=== PATIENT | male | born 1990 | race Caucasian/White ===

== ENCOUNTER 2016-03-12 18:47 | Emergency (ER) | payer OTHER ==
--- NOTE | 2016-03-12 20:25 | ED CLINICAL REPORT ---
Clinical Report - Physicians/Mid Levels [facility] [address] [place] [address] 03/12/2016 18:49 Patient: LASHANDA URIARTE Time Seen: 19:26; initial patient contact, initial documentation, patient care assumed. Arrived- By private vehicle. Historian- patient. HISTORY OF PRESENT ILLNESS Chief Complaint: NECK PAIN and CHRONIC NECK PAIN. Modifying factors- worsened by rotation of the head to the right or left or neck flexion. Not relieved by anything. Onset- about 3 years ago and it is still present. It is described as being severe and in the area of the left side of the cervical spine, cervical spine and right side of the cervical spine and radiating to the right arm and right shoulder. The quality is noted to be sharp and "pain". No bladder dysfunction, bowel dysfunction, sensory loss or motor loss. Additional history - says he still is having trouble getting dr to do anything because his L&I case was closed and recently back opened. Patient denies an injury but injury to the head or chest. Similar symptoms previously: Chronically, as bad. Recent medical care: Not recently seen/assessed. REVIEW OF SYSTEMS No fever, sore throat, difficulty breathing or chest pain. All systems otherwise negative, except as recorded above. PAST HISTORY See nurses notes. Has had neck injury. He has had prior neck pain. PAST HISTORY See nurses notes. PROBLEMS: Cervical Radiculopathy. Gastroesophageal Reflux Disease. Gastritis. Peptic Ulcer Disease. GI Bleeding. H-pylori. Dehydration. Neck Injury. Sciatica. Back Injury. Vomiting. Headache. Croup. Tetanus Status. Myofascial Strain. Gingivitis. Nausea. Neck Pain. Dental Pain. Back Pain. --17:11 Tootie Flannery. ADDITIONAL SURGERIES: Endoscopy. --17:11 Tootie Flannery. SOCIAL HISTORY Light tobacco smoker. No alcohol use or drug use. No recent travel. Is a local resident. FAMILY HISTORY Negative. ADDITIONAL NOTES The nursing notes have been reviewed with agreement regarding the chief complaint, HPI, ROS, PMH and patient medications and allergies. PHYSICAL EXAM Vital Signs: 03/12/2016 19:16 BP: 139/89. HR: 88. RR: 20. O2 saturation: 100%. Temp: 98.6 F. Pain level now: 8/10. Have been reviewed as normal and appear to be correct. Appearance: Alert. No acute distress. Anxious. HEENT: Normal external inspection. Eyes: Pupils equal, round and reactive to light. ENT: Ears normal. Pharynx normal. Neck: Neck tenderness. Abnormal inspection. Painful ROM. Pain in the neck upon movement. Decrease in ROM. No muscle spasm in the neck. Vertebral tenderness. Soft tissue tenderness. No lymphadenopathy or meningeal signs. CVS: Normal heart rate and rhythm. Heart sounds normal. Pulses normal. Respiratory: No respiratory distress. Breath sounds normal. Chest nontender. Back: Normal inspection. No tenderness. Painless ROM. Skin: Skin warm and dry. Normal skin color. No rash. Normal skin turgor. Extremities: Extremities exhibit normal ROM. Extremities nontender. Neuro: Oriented X 3. Mood/affect normal. No motor deficit. No sensory deficit. PROGRESS AND PROCEDURES Patient counseled in person regarding the patient's stable condition and diagnosis. 20:25. Differential Diagnosis: Other possible considerations: substance abuse, chronic neck pain, radiocapathy, nerve impingement, oa, ddd, djd. Above considerations are based on history and physical exam. Differential diagnosis was discussed with patient. Disposition: Discharged home in good and improved condition (20:25). Condition: good and stable. CLINICAL IMPRESSION Chronic neck pain associated with cervical disc herniation. Chronic right and left upper, mid and lower cervical radiculopathy with sensory loss. INSTRUCTIONS Warnings: GENERAL WARNINGS: Return or contact your physician immediately if your condition worsens or changes unexpectedly, if not improving as expected, or if other problems arise. SPECIFICALLY, return if you develop numbness or incontinence of feces (loss of bowel control) or urine (loss of bladder control). Prescription Medications: Naproxen 500 mg tablets: take 1 orally every 12 hours as needed for pain. Dispense twenty (20). No refills. Medrol Dosepak: take according to package directions. Dispense one (1) dosepak. No refills. Substitution is permissible. Follow-up: Follow up with your doctor in about one week even if well. Call for an appointment. Summary of care provided to patient. Understanding of the discharge instructions verbalized by patient. (Electronically signed by Ayana Ortiz A.R.N.P. 03/12/2016 22:06)
--- NOTE | 2016-03-12 20:26 | ED ORDER SUMMARY ---
..... Patient: LASHANDA URIARTE OrderSheet [facility] VisitID: [id number] [place] [address] 25y, M Registration Date/Time: 03/12/2016 ORDER SHEET Weight: 24.9 kg (stated) Allergies: No Known Drug Allergy GENERAL ORDERS: MEDICATION ORDERS: Toradol IM 60 mg (NOW) (20:24 03/12/2016 HBivens A.R.N.P.) (20:33 SRoberts R.N.) Decadron IM 8 mg (NOW) (20:24 03/12/2016 HBivens A.R.N.P.) (20:33 SRoberts R.N.) IV FLUIDS: ORDER SHEET NOTES: [Electronically signed by Randee Yusuf R.N. (20:44 03/12/2016)] [Electronically signed by Ayana OrtizR.N.P. (22:06 03/12/2016)] [Electronically locked/signed by Randee Yusuf R.N. (20:44 03/12/2016)]
--- NOTE | 2016-03-12 20:26 | ED ORDER SUMMARY ---
..... Patient: LASHANDA URIARTE OrderSheet [facility] VisitID: [id number] [place] [address] 25y, M Registration Date/Time: 03/12/2016 ORDER SHEET Weight: 24.9 kg (stated) Allergies: No Known Drug Allergy GENERAL ORDERS: MEDICATION ORDERS: Toradol IM 60 mg (NOW) (20:24 03/12/2016 HBivens A.R.N.P.) (20:33 SRoberts R.N.) Decadron IM 8 mg (NOW) (20:24 03/12/2016 HBivens A.R.N.P.) (20:33 SRoberts R.N.) IV FLUIDS: ORDER SHEET NOTES: [Electronically signed by Randee Yusuf R.N. (20:44 03/12/2016)] [Electronically signed by Ayana OrtizR.N.P. (22:06 03/12/2016)] [Electronically locked/signed by Randee Yusuf R.N. (20:44 03/12/2016)]
--- NOTE | 2016-03-12 20:26 | ED NURSING NOTES ---
Clinical Report - Nurses [facility] [address] [place] [address] 03/12/2016 18:49 [id number] Triage time 19:16. Acuity: LEVEL 3. Chief Complaint: NECK PAIN and (Chronic neck pain, herniated disc.). Alert. No acute distress. KUSUM COMA SCORE: [place] Coma Scale: 15- eyes open spontaneously (4); best verbal response- oriented x 4 (5); best motor response- obeys commands (6). --19:23 Randee Yusuf R.N. 19:16 03/12/16. BP: 139/89. HR: 88. RR: 20. O2 saturation: 100%. Temp: 98.6 F. Pain level now: 8. --19:23 Randee Yusuf R.N. 19:16 03/12/16. BP: 139/89. HR: 88. RR: 20. O2 saturation: 100%. Temp: 98.6 F. Pain level now: 09/21. --19:24 Randee Yusuf R.N. Weight: 24.9 kg stated. Height/Length: 71 inches Per Patient. BMI: 7.7. --19:21 Randee Yusuf R.N. Medications OxyCODONE HCl Oral 10 mg, up to 5 x daily as needed. --19:20 Randee Yusuf R.N. Allergies No Known Drug Allergy. --19:20 Randee Yusuf R.N. History Arrived by private vehicle. Historian: patient. Primary physician (marylin). ( dropped off.). This is a recurrent problem. Symptoms are constant and still present (3 years ago, an L&I injury to the neck, herniated disc C5-C6. "For the last 3 days it has hurt, got really bad today. "). History of recent trauma- (3 years ago). 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 PAST MEDICAL HX: Tetanus status: unknown. ( neck injury, croupe). SURGERY HX: No history of previous surgery. FALL RISK ASSESSMENT: Fall risk assessment completed. No fall risk identified. NUTRITIONAL RISK ASSESSMENT: The nutritional risk assessment revealed no deficiencies. FUNCTIONAL ASSESSMENT: Functional assessment: no impairments noted. LEARNING NEEDS ASSESSMENT: The learning needs assessment revealed no barriers. SKIN INTEGRITY ASSESSMENT: Skin integrity risk assessment completed. No skin integrity risk identified. --19:23 Randee Yusuf R.N. Interventions ID band on patient. To room. --19:23 Randee Yusuf R.N. PHYSICAL ASSESSMENT To room via wheelchair. Patient gowned. GENERAL / NEURO / PSYCH: Alert. Oriented X 4. Appears in pain and anxious. RESPIRATORY: Respirations not labored. CVS: Capillary refill less than 2 seconds. GI / : Abdomen nontender. EXTREMITIES: Limited ROM present. Sensation intact in extremities. BACK: Limited ROM of the neck. --19:24 Randee Yusuf R.N. NURSING PROGRESS NOTES Cold pack applied. Patient gowned. Two patient identifiers checked. Call light placed in reach. Side rails up x 2. Bed placed in lowest position. Brakes of bed on. Patient ready for evaluation. --19:25 Randee Yusuf R.N. 20:18 03/12/2016 Decadron (Dexamethasone Sodium Phosphate) IM 8 mg given. Given in the left gluteus nacho. Allergies verified and confirmed 5 rights. --20:33 Randee Yusuf R.N. 20:23 03/12/2016 Toradol (Ketorolac Tromethamine) IM 60 mg given. Given in the right gluteus nacho. Allergies verified and confirmed 5 rights. --20:33 Randee Yusuf R.N. DISPOSITION / DISCHARGE Condition at departure: improved. No learning barriers present. Discharge instructions provided and reviewed with the patient. Reviewed medication(s) side effects, precautions, dosing and course information. Prescription(s) given to the patient. Patient verbalized understanding. Written instructions provided in [place]. The patient was discharged home. He left the Emergency Department ambulatory and via private vehicle. Parent driving. Medication list reviewed and validated. --20:43 Randee Yusuf R.N. 20:41 03/12/16. BP: 112/73. HR: 83. RR: 20. O2 saturation: 100% on nasal cannula at 2 liters/minute. Temp: deferred. --20:43 Randee Yusuf R.N. Locked/Released at 03/12/2016 20:44 by Ranede Yusuf R.N.
--- NOTE | 2016-03-12 20:26 | ED NURSING NOTES ---
Clinical Report - Nurses [facility] [address] [place] [address] 03/12/2016 18:49 [id number] Triage time 19:16. Acuity: LEVEL 3. Chief Complaint: NECK PAIN and (Chronic neck pain, herniated disc.). Alert. No acute distress. KUSUM COMA SCORE: [place] Coma Scale: 15- eyes open spontaneously (4); best verbal response- oriented x 4 (5); best motor response- obeys commands (6). --19:23 Randee Yusuf R.N. 19:16 03/12/16. BP: 139/89. HR: 88. RR: 20. O2 saturation: 100%. Temp: 98.6 F. Pain level now: 8. --19:23 Randee Yusuf R.N. 19:16 03/12/16. BP: 139/89. HR: 88. RR: 20. O2 saturation: 100%. Temp: 98.6 F. Pain level now: 09/21. --19:24 Randee Yusuf R.N. Weight: 24.9 kg stated. Height/Length: 71 inches Per Patient. BMI: 7.7. --19:21 Randee Yusuf R.N. Medications OxyCODONE HCl Oral 10 mg, up to 5 x daily as needed. --19:20 Randee Yusuf R.N. Allergies No Known Drug Allergy. --19:20 Randee Yusuf R.N. History Arrived by private vehicle. Historian: patient. Primary physician (marylin). ( dropped off.). This is a recurrent problem. Symptoms are constant and still present (3 years ago, an L&I injury to the neck, herniated disc C5-C6. "For the last 3 days it has hurt, got really bad today. "). History of recent trauma- (3 years ago). 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 PAST MEDICAL HX: Tetanus status: unknown. ( neck injury, croupe). SURGERY HX: No history of previous surgery. FALL RISK ASSESSMENT: Fall risk assessment completed. No fall risk identified. NUTRITIONAL RISK ASSESSMENT: The nutritional risk assessment revealed no deficiencies. FUNCTIONAL ASSESSMENT: Functional assessment: no impairments noted. LEARNING NEEDS ASSESSMENT: The learning needs assessment revealed no barriers. SKIN INTEGRITY ASSESSMENT: Skin integrity risk assessment completed. No skin integrity risk identified. --19:23 Randee Yusuf R.N. Interventions ID band on patient. To room. --19:23 Randee Yusuf R.N. PHYSICAL ASSESSMENT To room via wheelchair. Patient gowned. GENERAL / NEURO / PSYCH: Alert. Oriented X 4. Appears in pain and anxious. RESPIRATORY: Respirations not labored. CVS: Capillary refill less than 2 seconds. GI / : Abdomen nontender. EXTREMITIES: Limited ROM present. Sensation intact in extremities. BACK: Limited ROM of the neck. --19:24 Randee Yusuf R.N. NURSING PROGRESS NOTES Cold pack applied. Patient gowned. Two patient identifiers checked. Call light placed in reach. Side rails up x 2. Bed placed in lowest position. Brakes of bed on. Patient ready for evaluation. --19:25 Randee Yusuf R.N. 20:18 03/12/2016 Decadron (Dexamethasone Sodium Phosphate) IM 8 mg given. Given in the left gluteus nacho. Allergies verified and confirmed 5 rights. --20:33 Randee Yusuf R.N. 20:23 03/12/2016 Toradol (Ketorolac Tromethamine) IM 60 mg given. Given in the right gluteus nacho. Allergies verified and confirmed 5 rights. --20:33 Randee Yusuf R.N. DISPOSITION / DISCHARGE Condition at departure: improved. No learning barriers present. Discharge instructions provided and reviewed with the patient. Reviewed medication(s) side effects, precautions, dosing and course information. Prescription(s) given to the patient. Patient verbalized understanding. Written instructions provided in [place]. The patient was discharged home. He left the Emergency Department ambulatory and via private vehicle. Parent driving. Medication list reviewed and validated. --20:43 Randee Yusuf R.N. 20:41 03/12/16. BP: 112/73. HR: 83. RR: 20. O2 saturation: 100% on nasal cannula at 2 liters/minute. Temp: deferred. --20:43 Randee Yusuf R.N. Locked/Released at 03/12/2016 20:44 by Randee Yusuf R.N.
--- NOTE | 2016-03-12 22:06 | ED MAR SUMMARY ---
..... Medication Administration Record [facility] [address] [place] [address] Patient: LASHANDA URIARTE Visit ID: [id number] 25y, M Weight: 24.9 kg Height/Length: 71 in BMI: 7.7 ALLERGIES: No Known Drug Allergy Given 20:18 03/12/2016 Randee Yusuf R.N. Medication Administered: DECADRON [IM] (DEXAMETHASONE SODIUM PHOSPHATE), Dose: 8 mg IM. Medication Ordered: Decadron IM 8 mg (NOW). Given 20:23 03/12/2016 Randee Yusuf R.N. Medication Administered: TORADOL [IM] (KETOROLAC TROMETHAMINE), Dose: 60 mg IM. Medication Ordered: Toradol IM 60 mg (NOW).
--- NOTE | 2016-03-12 22:06 | ED DISCHARGE INSTRUCTIONS ---
Patient: LASHANDA URIARTE General Instructions [facility] VisitID: [id number] [place] [address] 25y, M Registration Date/Time: 03/12/2016 Chronic neck pain associated with cervical disc herniation. Chronic right and left upper, mid and lower cervical radiculopathy with sensory loss. INSTRUCTIONS Warnings: GENERAL WARNINGS: Return or contact your physician immediately if your condition worsens or changes unexpectedly, if not improving as expected, or if other problems arise. SPECIFICALLY, return if you develop numbness or incontinence of feces (loss of bowel control) or urine (loss of bladder control). Prescription Medications: Naproxen 500 mg tablets: take 1 orally every 12 hours as needed for pain. Dispense twenty (20). No refills. Medrol Dosepak: take according to package directions. Dispense one (1) dosepak. No refills. Substitution is permissible. Follow-up: Follow up with your doctor in about one week even if well. Call for an appointment. Summary of care provided to patient. Understanding of the discharge instructions verbalized by patient. ADDITIONAL INFORMATION Neck Pain [No Trauma] There are several possible causes of neck pain without injury: You can get a minor ligament sprain or muscle strain from a sudden minor neck movement. Sleeping with your neck in an awkward position can also cause this. Some persons respond to emotional stress by tensing the muscles of their neck, shoulders and upper back. Chronic spasm in these muscles can cause neck pain and sometimes headaches. Gradualwear and tearof the joints in the spine can cause degenerative arthritis.This can be a source of occasional or chronic neck pain. With aging or repeated small injuries to the neck, the spinal disks (the cushions between each spinal bone) may bulge and put pressure on a nearby spinal nerve. This causes tingling, pain or numbness spreading from the neck to the shoulder, arm or hand on one side. Acute neck pain usually gets better in one to two weeks. Neck pain related to disk disease, arthritis in the spinal joints or spinal stenosis (narrowing of the spinal canal) can become chronic and last for months or years. Unless you had a forceful physical injury (for example, a car accident or fall), X-rays are usually not ordered for the initial evaluation of neck pain. If pain continues and does not respond to medical treatment, x-rays and other tests may be performed at a later time. Home Care: Rest and relax the muscles. Use a comfortable pillow that supports the head and keeps the spine in a neutral position. The position of the head should not be tilted forward or backward. A rolled up towel may help for a custom fit. Some persons find relief with heat (hot shower, hot bath or heating pad) and massage, while others prefer cold packs (crushed or cubed ice in a plastic bag, wrapped in a towel) . Try both and use the method that feels best for 20 minutes several times a day. You may use acetaminophen (Tylenol) or ibuprofen (Motrin, Advil) to control pain, unless another medicine was prescribed. [ NOTE : If you have chronic liver or kidney disease or ever had a stomach ulcer or GI bleeding, talk with your doctor before using these medicines.] Follow Up with your physician or this facility if your symptoms do not show signs of improvement after one week. Physical therapy or further tests may be needed. [NOTE: A radiologist will review any X-rays or CT scans that were taken. We will notify you of any new findings that may affect your care.] Get Prompt Medical Attention if any of the following occur: Pain becomes worse or spreads into one or both arms Weakness or numbness in one or both arms Increasing headache Neck swelling, difficulty or painful swallowing Fever of 100.4F (38C) or higher, or as directed by your healthcare provider Pinched Nerve, Neck [Cervical Radiculopathy] A pinched nerve in the neck (also called "Cervical Radiculopathy") is caused by irritation or pressure on the nerve that goes from the spinal cord to the arm. This may be caused by a bulging spinal disk (a "spinal disk" is the cushion between each spinal bone) or narrowing of the spinal joint due to arthritis. This can cause numbness, tingling, deep aching or electrical shooting pain from the side of the neck all the way down to the fingers on one side. A pinched nerve may begin after a sudden turning/bending force (such as in a car accident) or after a simple awkward movement. In either case, muscle spasm is commonly present and contributes to the pain. Home Care: 1) Rest and relax the muscles. Use a comfortable pillow that supports the head and keeps the spine in a neutral position. The position of the head should not be tilted forward or backward. A rolled up towel may help for a custom fit. 2) Some persons find relief with heat (hot shower, hot bath or heating pad) and massage, while others prefer cold packs (crushed or cubed ice in a plastic bag, wrapped in a towel) . Try both and use the method that feels best for 20 minutes several times a day. 3) You may use acetaminophen (Tylenol) or ibuprofen (Motrin, Advil) to control pain, unless another medicine was prescribed. [ NOTE : If you have chronic liver or kidney disease or ever had a stomach ulcer or GI bleeding, talk with your doctor before using these medicines.] Follow Up with your physician or this facility if your symptoms do not show signs of improvement after one week. Further testing may be needed. [NOTE: If x-rays were taken, they will be reviewed by a radiologist. You will be notified of any new findings that may affect your care.] Get Prompt Medical Attention if any of the following occur: -- Pain becomes worse and not controlled by prescribed pain medicine -- Weakness in the arm -- Increasing numbness in the arm -- Trouble breathing or swallowing Pinched Nerve, Neck [Cervical Radiculopathy] A pinched nerve in the neck (also called "Cervical Radiculopathy") is caused by irritation or pressure on the nerve that goes from the spinal cord to the arm. This may be caused by a bulging spinal disk (a "spinal disk" is the cushion between each spinal bone) or narrowing of the spinal joint due to arthritis. This can cause numbness, tingling, deep aching or electrical shooting pain from the side of the neck all the way down to the fingers on one side. A pinched nerve may begin after a sudden turning/bending force (such as in a car accident) or after a simple awkward movement. In either case, muscle spasm is commonly present and contributes to the pain. Home Care: 1) Rest and relax the muscles. Use a comfortable pillow that supports the head and keeps the spine in a neutral position. The position of the head should not be tilted forward or backward. A rolled up towel may help for a custom fit. 2) Some persons find relief with heat (hot shower, hot bath or heating pad) and massage, while others prefer cold packs (crushed or cubed ice in a plastic bag, wrapped in a towel) . Try both and use the method that feels best for 20 minutes several times a day. 3) You may use acetaminophen (Tylenol) or ibuprofen (Motrin, Advil) to control pain, unless another medicine was prescribed. [ NOTE : If you have chronic liver or kidney disease or ever had a stomach ulcer or GI bleeding, talk with your doctor before using these medicines.] Follow Up with your physician or this facility if your symptoms do not show signs of improvement after one week. Further testing may be needed. [NOTE: If x-rays were taken, they will be reviewed by a radiologist. You will be notified of any new findings that may affect your care.] Get Prompt Medical Attention if any of the following occur: -- Pain becomes worse and not controlled by prescribed pain medicine -- Weakness in the arm -- Increasing numbness in the arm -- Trouble breathing or swallowing Naproxen Sodium Oral tablet What is this medicine? NAPROXEN (na PROX en) is a non-steroidal anti-inflammatory drug (NSAID). It is used to reduce swelling and to treat pain. This medicine may be used for dental pain, headache, or painful monthly periods. It is also used for painful joint and muscular problems such as arthritis, tendinitis, bursitis, and gout. How should I use this medicine? Take this medicine by mouth with a glass of water. Follow the directions on the prescription label. Take it with food if your stomach gets upset. Try to not lie down for at least 10 minutes after you take it. Take your medicine at regular intervals. Do not take your medicine more often than directed. Long-term, continuous use may increase the risk of heart attack or stroke. A special MedGuide will be given to you by the pharmacist with each prescription and refill. Be sure to read this information carefully each time. Talk to your ride attendant regarding the use of this medicine in children. Special care may be needed. What side effects may I notice from receiving this medicine? Side effects that you should report to your doctor or health school childcare attendant as soon as possible: black or bloody stools, blood in the urine or vomit blurred vision chest pain difficulty breathing or wheezing nausea or vomiting severe stomach pain skin rash, skin redness, blistering or peeling skin, hives, or itching slurred speech or weakness on one side of the body swelling of eyelids, throat, lips unexplained weight gain or swelling unusually weak or tired yellowing of eyes or skin Side effects that usually do not require medical attention (report to your doctor or health school childcare attendant if they continue or are bothersome): constipation headache heartburn What may interact with this medicine? alcohol aspirin cidofovir diuretics lithium methotrexate other drugs for inflammation like ketorolac or prednisone pemetrexed probenecid warfarin What if I miss a dose? If you miss a dose, take it as soon as you can. If it is almost time for your next dose, take only that dose. Do not take double or extra doses. Where should I keep my medicine? Keep out of the reach of children. Store at room temperature between 15 and 30 degrees C (59 and 86 degrees F). Keep container tightly closed. Throw away any unused medicine after the expiration date. What should I tell my health care provider before I take this medicine? They need to know if you have any of these conditions: asthma cigarette smoker drink more than 3 alcohol containing drinks a day heart disease or circulation problems such as heart failure or leg edema (fluid retention) high blood pressure kidney disease liver disease stomach bleeding or ulcers an unusual or allergic reaction to naproxen, aspirin, other NSAIDs, other medicines, foods, dyes, or preservatives or trying to get breast-feeding What should I watch for while using this medicine? Tell your doctor or health school childcare attendant if your pain does not get better. Talk to your doctor before taking another medicine for pain. Do not treat yourself. This medicine does not prevent heart attack or stroke. In fact, this medicine may increase the chance of a heart attack or stroke. The chance may increase with longer use of this medicine and in people who have heart disease. If you take aspirin to prevent heart attack or stroke, talk with your doctor or health school childcare attendant. Do not take other medicines that contain aspirin, ibuprofen, or naproxen with this medicine. Side effects such as stomach upset, nausea, or ulcers may be more likely to occur. Many medicines available without a prescription should not be taken with this medicine. This medicine can cause ulcers and bleeding in the stomach and intestines at any time during treatment. Do not smoke cigarettes or drink alcohol. These increase irritation to your stomach and can make it more susceptible to damage from this medicine. Ulcers and bleeding can happen without warning symptoms and can cause . You may get drowsy or dizzy. Do not drive, use machinery, or do anything that needs mental alertness until you know how this medicine affects you. Do not stand or sit up quickly, especially if you are an older patient. This reduces the risk of dizzy or fainting spells. This medicine can cause you to bleed more easily. Try to avoid damage to your teeth and gums when you brush or floss your teeth. Methylprednisolone Oral tablet What is this medicine? METHYLPREDNISOLONE (meth ill pred NISS oh lone) is a corticosteroid. It is commonly used to treat inflammation of the skin, joints, lungs, and other organs. Common conditions treated include asthma, allergies, and arthritis. It is also used for other conditions, such as blood disorders and diseases of the adrenal glands. How should I use this medicine? Take this medicine by mouth with a drink of water. Follow the directions on the prescription label. Take it with food or milk to avoid stomach upset. If you are taking this medicine once a day, take it in the morning. Do not take more medicine than you are told to take. Do not suddenly stop taking your medicine because you may develop a severe reaction. Your doctor will tell you how much medicine to take. If your doctor wants you to stop the medicine, the dose may be slowly lowered over time to avoid any side effects. Talk to your ride attendant regarding the use of this medicine in children. Special care may be needed. What side effects may I notice from receiving this medicine? Side effects that you should report to your doctor or health school childcare attendant as soon as possible: allergic reactions like skin rash, itching or hives, swelling of the face, lips, or tongue eye pain, decreased or blurred vision, or bulging eyes fever, sore throat, sneezing, cough, or other signs of infection, wounds that will not heal increased thirst mental depression, mood swings, mistaken feelings of self importance or of being mistreated pain in hips, back, ribs, arms, shoulders, or legs swelling of the ankles, feet, hands trouble passing urine or change in the amount of urine Side effects that usually do not require medical attention (report to your doctor or health school childcare attendant if they continue or are bothersome): confusion, excitement, restlessness headache nausea, vomiting skin problems, acne, thin and shiny skin weight gain What may interact with this medicine? Do not take this medicine with any of the following medications: mifepristone This medicine may also interact with the following medications: tacrolimus vaccines warfarin What if I miss a dose? If you miss a dose, take it as soon as you can. If it is almost time for your next dose, talk to your doctor or health school childcare attendant. You may need to miss a dose or take an extra dose. Do not take double or extra doses without advice. Where should I keep my medicine? Keep out of the reach of children. Store at room temperature between 20 and 25 degrees C (68 and 77 degrees F). Throw away any unused medicine after the expiration date. What should I tell my health care provider before I take this medicine? They need to know if you have any of these conditions: [place]'s syndrome diabetes glaucoma heart problems or disease high blood pressure infection such as herpes, measles, tuberculosis, or chickenpox kidney disease liver disease mental problems myasthenia gravis osteoporosis seizures stomach ulcer or intestine disease including colitis and diverticulitis thyroid problem an unusual or allergic reaction to lactose, methylprednisolone, other medicines, foods, dyes, or preservatives or trying to get breast-feeding What should I watch for while using this medicine? Visit your doctor or health school childcare attendant for regular checks on your progress. If you are taking this medicine for a long time, carry an identification card with your name and address, the type and dose of your medicine, and your doctor's name and address. The medicine may increase your risk of getting an infection. Stay away from people who are sick. Tell your doctor or health school childcare attendant if you are around anyone with measles or chickenpox. If you are going to have surgery, tell your doctor or health school childcare attendant that you have taken this medicine within the last twelve months. Ask your doctor or health school childcare attendant about your diet. You may need to lower the amount of salt you eat. The medicine can increase your blood sugar. If you are a diabetic check with your doctor if you need help adjusting the dose of your diabetic medicine. You have been given the following additional information: Neck Pain, No Trauma Radiculopathy, Cervical Radiculopathy, Cervical Naproxen Sodium Oral tablet Methylprednisolone Oral tablet (Electronically signed by Ayana Ortiz A.R.N.P. 03/12/2016 22:06)
--- NOTE | 2016-03-12 22:06 | ED MED RECONCILIATION SUMMARY ---
Patient: LASHANDA URIARTE Medication Reconciliation Report [facility] VisitID: [id number] [place] [address] 25y, M Registration Date/Time: 03/12/2016 Weight: 24.9 kg Height/Length: 71 in. BMI: 7.7 ALLERGIES: No Known Drug Allergy The patient's Home Medications are listed below: THE FOLLOWING MEDICATIONS NEED TO BE RECONCILED: OxyCODONE HCl Oral 10 mg, up to 5 x daily The source(s) of the original Home Medication information: Not obtained. The following Medications were given to the patient in the Emergency Department: Toradol [IM] IM 60 mg, administered: 03/12/2016 8:23:00 PM Decadron [IM] IM 8 mg, administered: 03/12/2016 8:18:00 PM The following Medications were prescribed to the patient: Naproxen 500 mg tablets: take 1 orally every 12 hours as needed for pain. Dispense twenty (20). No refills. -- Ayana Ortiz, [place].R.N.P. Medrol Dosepak: take according to package directions. Dispense one (1) dosepak. No refills. Substitution is permissible. -- Ayana Ortiz A.R.N.P.
--- NOTE | 2016-03-12 22:06 | ED MAR SUMMARY ---
..... Medication Administration Record [facility] [address] [place] [address] Patient: LASHANDA URIARTE Visit ID: [id number] 25y, M Weight: 24.9 kg Height/Length: 71 in BMI: 7.7 ALLERGIES: No Known Drug Allergy Given 20:18 03/12/2016 Randee Yusuf R.N. Medication Administered: DECADRON [IM] (DEXAMETHASONE SODIUM PHOSPHATE), Dose: 8 mg IM. Medication Ordered: Decadron IM 8 mg (NOW). Given 20:23 03/12/2016 Randee Yusuf R.N. Medication Administered: TORADOL [IM] (KETOROLAC TROMETHAMINE), Dose: 60 mg IM. Medication Ordered: Toradol IM 60 mg (NOW).
--- NOTE | 2016-03-12 22:06 | ED DISCHARGE INSTRUCTIONS ---
Patient: LASHANDA URIARTE General Instructions [facility] VisitID: [id number] [place] [address] 25y, M Registration Date/Time: 03/12/2016 Chronic neck pain associated with cervical disc herniation. Chronic right and left upper, mid and lower cervical radiculopathy with sensory loss. INSTRUCTIONS Warnings: GENERAL WARNINGS: Return or contact your physician immediately if your condition worsens or changes unexpectedly, if not improving as expected, or if other problems arise. SPECIFICALLY, return if you develop numbness or incontinence of feces (loss of bowel control) or urine (loss of bladder control). Prescription Medications: Naproxen 500 mg tablets: take 1 orally every 12 hours as needed for pain. Dispense twenty (20). No refills. Medrol Dosepak: take according to package directions. Dispense one (1) dosepak. No refills. Substitution is permissible. Follow-up: Follow up with your doctor in about one week even if well. Call for an appointment. Summary of care provided to patient. Understanding of the discharge instructions verbalized by patient. ADDITIONAL INFORMATION Neck Pain [No Trauma] There are several possible causes of neck pain without injury: You can get a minor ligament sprain or muscle strain from a sudden minor neck movement. Sleeping with your neck in an awkward position can also cause this. Some persons respond to emotional stress by tensing the muscles of their neck, shoulders and upper back. Chronic spasm in these muscles can cause neck pain and sometimes headaches. Gradualwear and tearof the joints in the spine can cause degenerative arthritis.This can be a source of occasional or chronic neck pain. With aging or repeated small injuries to the neck, the spinal disks (the cushions between each spinal bone) may bulge and put pressure on a nearby spinal nerve. This causes tingling, pain or numbness spreading from the neck to the shoulder, arm or hand on one side. Acute neck pain usually gets better in one to two weeks. Neck pain related to disk disease, arthritis in the spinal joints or spinal stenosis (narrowing of the spinal canal) can become chronic and last for months or years. Unless you had a forceful physical injury (for example, a car accident or fall), X-rays are usually not ordered for the initial evaluation of neck pain. If pain continues and does not respond to medical treatment, x-rays and other tests may be performed at a later time. Home Care: Rest and relax the muscles. Use a comfortable pillow that supports the head and keeps the spine in a neutral position. The position of the head should not be tilted forward or backward. A rolled up towel may help for a custom fit. Some persons find relief with heat (hot shower, hot bath or heating pad) and massage, while others prefer cold packs (crushed or cubed ice in a plastic bag, wrapped in a towel) . Try both and use the method that feels best for 20 minutes several times a day. You may use acetaminophen (Tylenol) or ibuprofen (Motrin, Advil) to control pain, unless another medicine was prescribed. [ NOTE : If you have chronic liver or kidney disease or ever had a stomach ulcer or GI bleeding, talk with your doctor before using these medicines.] Follow Up with your physician or this facility if your symptoms do not show signs of improvement after one week. Physical therapy or further tests may be needed. [NOTE: A radiologist will review any X-rays or CT scans that were taken. We will notify you of any new findings that may affect your care.] Get Prompt Medical Attention if any of the following occur: Pain becomes worse or spreads into one or both arms Weakness or numbness in one or both arms Increasing headache Neck swelling, difficulty or painful swallowing Fever of 100.4F (38C) or higher, or as directed by your healthcare provider Pinched Nerve, Neck [Cervical Radiculopathy] A pinched nerve in the neck (also called "Cervical Radiculopathy") is caused by irritation or pressure on the nerve that goes from the spinal cord to the arm. This may be caused by a bulging spinal disk (a "spinal disk" is the cushion between each spinal bone) or narrowing of the spinal joint due to arthritis. This can cause numbness, tingling, deep aching or electrical shooting pain from the side of the neck all the way down to the fingers on one side. A pinched nerve may begin after a sudden turning/bending force (such as in a car accident) or after a simple awkward movement. In either case, muscle spasm is commonly present and contributes to the pain. Home Care: 1) Rest and relax the muscles. Use a comfortable pillow that supports the head and keeps the spine in a neutral position. The position of the head should not be tilted forward or backward. A rolled up towel may help for a custom fit. 2) Some persons find relief with heat (hot shower, hot bath or heating pad) and massage, while others prefer cold packs (crushed or cubed ice in a plastic bag, wrapped in a towel) . Try both and use the method that feels best for 20 minutes several times a day. 3) You may use acetaminophen (Tylenol) or ibuprofen (Motrin, Advil) to control pain, unless another medicine was prescribed. [ NOTE : If you have chronic liver or kidney disease or ever had a stomach ulcer or GI bleeding, talk with your doctor before using these medicines.] Follow Up with your physician or this facility if your symptoms do not show signs of improvement after one week. Further testing may be needed. [NOTE: If x-rays were taken, they will be reviewed by a radiologist. You will be notified of any new findings that may affect your care.] Get Prompt Medical Attention if any of the following occur: -- Pain becomes worse and not controlled by prescribed pain medicine -- Weakness in the arm -- Increasing numbness in the arm -- Trouble breathing or swallowing Pinched Nerve, Neck [Cervical Radiculopathy] A pinched nerve in the neck (also called "Cervical Radiculopathy") is caused by irritation or pressure on the nerve that goes from the spinal cord to the arm. This may be caused by a bulging spinal disk (a "spinal disk" is the cushion between each spinal bone) or narrowing of the spinal joint due to arthritis. This can cause numbness, tingling, deep aching or electrical shooting pain from the side of the neck all the way down to the fingers on one side. A pinched nerve may begin after a sudden turning/bending force (such as in a car accident) or after a simple awkward movement. In either case, muscle spasm is commonly present and contributes to the pain. Home Care: 1) Rest and relax the muscles. Use a comfortable pillow that supports the head and keeps the spine in a neutral position. The position of the head should not be tilted forward or backward. A rolled up towel may help for a custom fit. 2) Some persons find relief with heat (hot shower, hot bath or heating pad) and massage, while others prefer cold packs (crushed or cubed ice in a plastic bag, wrapped in a towel) . Try both and use the method that feels best for 20 minutes several times a day. 3) You may use acetaminophen (Tylenol) or ibuprofen (Motrin, Advil) to control pain, unless another medicine was prescribed. [ NOTE : If you have chronic liver or kidney disease or ever had a stomach ulcer or GI bleeding, talk with your doctor before using these medicines.] Follow Up with your physician or this facility if your symptoms do not show signs of improvement after one week. Further testing may be needed. [NOTE: If x-rays were taken, they will be reviewed by a radiologist. You will be notified of any new findings that may affect your care.] Get Prompt Medical Attention if any of the following occur: -- Pain becomes worse and not controlled by prescribed pain medicine -- Weakness in the arm -- Increasing numbness in the arm -- Trouble breathing or swallowing Naproxen Sodium Oral tablet What is this medicine? NAPROXEN (na PROX en) is a non-steroidal anti-inflammatory drug (NSAID). It is used to reduce swelling and to treat pain. This medicine may be used for dental pain, headache, or painful monthly periods. It is also used for painful joint and muscular problems such as arthritis, tendinitis, bursitis, and gout. How should I use this medicine? Take this medicine by mouth with a glass of water. Follow the directions on the prescription label. Take it with food if your stomach gets upset. Try to not lie down for at least 10 minutes after you take it. Take your medicine at regular intervals. Do not take your medicine more often than directed. Long-term, continuous use may increase the risk of heart attack or stroke. A special MedGuide will be given to you by the pharmacist with each prescription and refill. Be sure to read this information carefully each time. Talk to your fire extinguisher repairer inspector regarding the use of this medicine in children. Special care may be needed. What side effects may I notice from receiving this medicine? Side effects that you should report to your doctor or health child care development specialist as soon as possible: black or bloody stools, blood in the urine or vomit blurred vision chest pain difficulty breathing or wheezing nausea or vomiting severe stomach pain skin rash, skin redness, blistering or peeling skin, hives, or itching slurred speech or weakness on one side of the body swelling of eyelids, throat, lips unexplained weight gain or swelling unusually weak or tired yellowing of eyes or skin Side effects that usually do not require medical attention (report to your doctor or health child care development specialist if they continue or are bothersome): constipation headache heartburn What may interact with this medicine? alcohol aspirin cidofovir diuretics lithium methotrexate other drugs for inflammation like ketorolac or prednisone pemetrexed probenecid warfarin What if I miss a dose? If you miss a dose, take it as soon as you can. If it is almost time for your next dose, take only that dose. Do not take double or extra doses. Where should I keep my medicine? Keep out of the reach of children. Store at room temperature between 15 and 30 degrees C (59 and 86 degrees F). Keep container tightly closed. Throw away any unused medicine after the expiration date. What should I tell my health care provider before I take this medicine? They need to know if you have any of these conditions: asthma cigarette smoker drink more than 3 alcohol containing drinks a day heart disease or circulation problems such as heart failure or leg edema (fluid retention) high blood pressure kidney disease liver disease stomach bleeding or ulcers an unusual or allergic reaction to naproxen, aspirin, other NSAIDs, other medicines, foods, dyes, or preservatives or trying to get breast-feeding What should I watch for while using this medicine? Tell your doctor or health child care development specialist if your pain does not get better. Talk to your doctor before taking another medicine for pain. Do not treat yourself. This medicine does not prevent heart attack or stroke. In fact, this medicine may increase the chance of a heart attack or stroke. The chance may increase with longer use of this medicine and in people who have heart disease. If you take aspirin to prevent heart attack or stroke, talk with your doctor or health child care development specialist. Do not take other medicines that contain aspirin, ibuprofen, or naproxen with this medicine. Side effects such as stomach upset, nausea, or ulcers may be more likely to occur. Many medicines available without a prescription should not be taken with this medicine. This medicine can cause ulcers and bleeding in the stomach and intestines at any time during treatment. Do not smoke cigarettes or drink alcohol. These increase irritation to your stomach and can make it more susceptible to damage from this medicine. Ulcers and bleeding can happen without warning symptoms and can cause . You may get drowsy or dizzy. Do not drive, use machinery, or do anything that needs mental alertness until you know how this medicine affects you. Do not stand or sit up quickly, especially if you are an older patient. This reduces the risk of dizzy or fainting spells. This medicine can cause you to bleed more easily. Try to avoid damage to your teeth and gums when you brush or floss your teeth. Methylprednisolone Oral tablet What is this medicine? METHYLPREDNISOLONE (meth ill pred NISS oh lone) is a corticosteroid. It is commonly used to treat inflammation of the skin, joints, lungs, and other organs. Common conditions treated include asthma, allergies, and arthritis. It is also used for other conditions, such as blood disorders and diseases of the adrenal glands. How should I use this medicine? Take this medicine by mouth with a drink of water. Follow the directions on the prescription label. Take it with food or milk to avoid stomach upset. If you are taking this medicine once a day, take it in the morning. Do not take more medicine than you are told to take. Do not suddenly stop taking your medicine because you may develop a severe reaction. Your doctor will tell you how much medicine to take. If your doctor wants you to stop the medicine, the dose may be slowly lowered over time to avoid any side effects. Talk to your fire extinguisher repairer inspector regarding the use of this medicine in children. Special care may be needed. What side effects may I notice from receiving this medicine? Side effects that you should report to your doctor or health child care development specialist as soon as possible: allergic reactions like skin rash, itching or hives, swelling of the face, lips, or tongue eye pain, decreased or blurred vision, or bulging eyes fever, sore throat, sneezing, cough, or other signs of infection, wounds that will not heal increased thirst mental depression, mood swings, mistaken feelings of self importance or of being mistreated pain in hips, back, ribs, arms, shoulders, or legs swelling of the ankles, feet, hands trouble passing urine or change in the amount of urine Side effects that usually do not require medical attention (report to your doctor or health child care development specialist if they continue or are bothersome): confusion, excitement, restlessness headache nausea, vomiting skin problems, acne, thin and shiny skin weight gain What may interact with this medicine? Do not take this medicine with any of the following medications: mifepristone This medicine may also interact with the following medications: tacrolimus vaccines warfarin What if I miss a dose? If you miss a dose, take it as soon as you can. If it is almost time for your next dose, talk to your doctor or health child care development specialist. You may need to miss a dose or take an extra dose. Do not take double or extra doses without advice. Where should I keep my medicine? Keep out of the reach of children. Store at room temperature between 20 and 25 degrees C (68 and 77 degrees F). Throw away any unused medicine after the expiration date. What should I tell my health care provider before I take this medicine? They need to know if you have any of these conditions: [place]'s syndrome diabetes glaucoma heart problems or disease high blood pressure infection such as herpes, measles, tuberculosis, or chickenpox kidney disease liver disease mental problems myasthenia gravis osteoporosis seizures stomach ulcer or intestine disease including colitis and diverticulitis thyroid problem an unusual or allergic reaction to lactose, methylprednisolone, other medicines, foods, dyes, or preservatives or trying to get breast-feeding What should I watch for while using this medicine? Visit your doctor or health child care development specialist for regular checks on your progress. If you are taking this medicine for a long time, carry an identification card with your name and address, the type and dose of your medicine, and your doctor's name and address. The medicine may increase your risk of getting an infection. Stay away from people who are sick. Tell your doctor or health child care development specialist if you are around anyone with measles or chickenpox. If you are going to have surgery, tell your doctor or health child care development specialist that you have taken this medicine within the last twelve months. Ask your doctor or health child care development specialist about your diet. You may need to lower the amount of salt you eat. The medicine can increase your blood sugar. If you are a diabetic check with your doctor if you need help adjusting the dose of your diabetic medicine. You have been given the following additional information: Neck Pain, No Trauma Radiculopathy, Cervical Radiculopathy, Cervical Naproxen Sodium Oral tablet Methylprednisolone Oral tablet (Electronically signed by Ayana Ortiz A.R.N.P. 03/12/2016 22:06)
--- NOTE | 2016-03-12 22:06 | ED MED RECONCILIATION SUMMARY ---
Patient: LASHANDA URIARTE Medication Reconciliation Report [facility] VisitID: [id number] [place] [address] 25y, M Registration Date/Time: 03/12/2016 Weight: 24.9 kg Height/Length: 71 in. BMI: 7.7 ALLERGIES: No Known Drug Allergy The patient's Home Medications are listed below: THE FOLLOWING MEDICATIONS NEED TO BE RECONCILED: OxyCODONE HCl Oral 10 mg, up to 5 x daily The source(s) of the original Home Medication information: Not obtained. The following Medications were given to the patient in the Emergency Department: Toradol [IM] IM 60 mg, administered: 03/12/2016 8:23:00 PM Decadron [IM] IM 8 mg, administered: 03/12/2016 8:18:00 PM The following Medications were prescribed to the patient: Naproxen 500 mg tablets: take 1 orally every 12 hours as needed for pain. Dispense twenty (20). No refills. -- Ayana Ortiz, [place].R.N.P. Medrol Dosepak: take according to package directions. Dispense one (1) dosepak. No refills. Substitution is permissible. -- Ayana Ortiz A.R.N.P.
== END 2016-03-12 20:40 | disposition home or self-care (01) ==
LOC: ED SRH 18:47
DX: G89.29 Other chronic pain (principal); M50.11 Cervical disc disorder with radiculopathy, high cervical region; M54.2 Cervicalgia

== ENCOUNTER 2016-05-03 17:51 | Emergency (ER) | payer OTHER ==
--- NOTE | 2016-05-05 14:35 | ED CLINICAL REPORT ---
Clinical Report - Physicians/Mid Levels [facility] [address] [place] [address] 05/03/2016 17:51 Patient: LASHANDA URIARTE Time Seen: 18:05; initial patient contact, initial documentation, patient care assumed. Arrived- By private vehicle. Historian- patient. HISTORY OF PRESENT ILLNESS Chief Complaint: BACK PAIN. Modifying factors- worsened by standing, walking, rotation of the body to the right or left, bending over, lifting, laughing or taking deep breaths. Not relieved by anything. It is described as being severe and in the area of the left lower lumbar spine, lower lumbar spine and right lower lumbar spine. The quality is noted to be "pain" and similar to prior episodes. No radiation. Onset- about 2 years ago and it is still present. No bladder dysfunction, bowel dysfunction, sensory loss or motor loss. Patient denies an injury but injury to the head or neck. No other injury. Similar symptoms previously: Chronically, as bad. Recent medical care: The patient was seen recently by a health care provider. ( states he had f/u since he was txed in Feb, had mri done, and that lied because he was told his back was fine and healed itself, and he knew that wasn't true, and the pain meds aren't helping and he is tired of being in pain). REVIEW OF SYSTEMS No fever, difficulty with urination, urinary frequency, hematuria or difficulty breathing. No chest pain, abdominal pain, vomiting or diarrhea. All systems otherwise negative, except as recorded above. PAST HISTORY See nurses notes. PROBLEMS: Cervical Radiculopathy. Gastroesophageal Reflux Disease. Gastritis. Peptic Ulcer Disease. GI Bleeding. H-pylori. Dehydration. Neck Injury. Sciatica. Back Injury. Vomiting. Headache. Croup. Myofascial Strain. Immunizations. Gingivitis. Nausea. Neck Pain. Dental Pain. Back Pain. --18:00 Joan Frazier R.N. ADDITIONAL SURGERIES: Endoscopy. --18:00 Joan Frazier R.N. SOCIAL HISTORY Light tobacco smoker. History of heavy drug use: marijuana. Recently used drugs today. No alcohol use. No recent travel. Is a local resident. FAMILY HISTORY Negative. ADDITIONAL NOTES The nursing notes have been reviewed with agreement regarding the chief complaint, HPI, ROS, PMH and patient medications and allergies. PHYSICAL EXAM Vital Signs: 05/03/2016 18:40 BP: 120/78. HR: 71. RR: 18. O2 saturation: 98%. Temp: 98.2 F. Pain level now: 8/10. Have been reviewed as normal and appear to be correct. Appearance: Alert. No acute distress. Neck: Normal inspection. Neck nontender. Painless ROM. CVS: Heart sounds normal. Pulses normal. Respiratory: No respiratory distress. Breath sounds normal. Abdomen: No visible injury. Soft and nontender. Back: Normal inspection. No tenderness. Painless ROM. Skin: Skin warm and dry. Normal skin color. No rash. Normal skin turgor. Extremities: Extremities exhibit normal ROM. Extremities nontender. Neuro: Oriented X 3. Mood/affect normal. No motor deficit. No sensory deficit. PROGRESS AND PROCEDURES Course of Care: pt has scarlet with recommendations to limit imaging varsha ct scans, large amounts of narcs, last rx #180 hydrocodone 10mg on 04/15 and getting that consistently every month, and #8 er visits, see report for full details nurse reporting pt refused meds. Patient counseled in person regarding the patient's stable condition and diagnosis. Differential Diagnosis: I considered Musculo-skeletal strain, contusion, retroperitoneal hematoma, disk protrusion, vertebral fracture, facet syndrome, sacroiliac joint strain, sciatica, osteoarthritis, lumbar spondylosis, spinal stenosis, ankylosing spondylitis, sacroiliac joint inflammation and ureterolithiasis as a possible cause of back pain in this patient. This is a partial list of diagnoses considered. (substance abuse). Above considerations are based on history and physical exam. Differential diagnosis was discussed with patient. Disposition: Discharged home in good and unchanged condition. Condition: good and stable. CLINICAL IMPRESSION Chronic nontraumatic lumbar back pain. No radiculopathy, sciatica or neurological deficit. Chronic substance abuse- marijuana, hydrocodone with anxiety. INSTRUCTIONS Warnings: GENERAL WARNINGS: Return or contact your physician immediately if your condition worsens or changes unexpectedly, if not improving as expected, or if other problems arise. SPECIFICALLY, return if you develop incontinence of urine (loss of bladder control). Follow-up: Follow up with your doctor in about one week as needed. Call for an appointment. Summary of care provided to patient. Understanding of the discharge instructions verbalized by patient. (Electronically signed by Ayana Ortiz A.R.N.P. 05/03/2016 20:27)
--- NOTE | 2016-05-05 14:35 | ED ORDER SUMMARY ---
..... Patient: LASHANDA URIARTE OrderSheet [facility] VisitID: [id number] [address] [place] [address] 25y, M Registration Date/Time: 05/03/2016 ORDER SHEET Weight: 58.9 kg (stated) Allergies: No Known Drug Allergy GENERAL ORDERS: MEDICATION ORDERS: Toradol IM 60 mg (NOW) (18:54 05/03/2016 HBivens A.R.N.P.) Decadron IM 8 mg (NOW) (18:54 05/03/2016 HBivens A.R.N.P.) IV FLUIDS: ORDER SHEET NOTES: [Electronically signed by Ayana OrtizR.N.PNathalie (20:27 05/03/2016)] [Electronically signed by Joan Frazier R.N. (14:34 05/05/2016)] [Electronically locked/signed by Joan Frazier R.N. (14:34 05/05/2016)]
--- NOTE | 2016-05-05 14:35 | ED DISCHARGE INSTRUCTIONS ---
Patient: LASHANDA URIARTE General Instructions [facility] VisitID: [id number] [place] [address] 25y, M Registration Date/Time: 05/03/2016 Chronic nontraumatic lumbar back pain. No radiculopathy, sciatica or neurological deficit. Chronic substance abuse- marijuana, hydrocodone with anxiety. INSTRUCTIONS Warnings: GENERAL WARNINGS: Return or contact your physician immediately if your condition worsens or changes unexpectedly, if not improving as expected, or if other problems arise. SPECIFICALLY, return if you develop incontinence of urine (loss of bladder control). Follow-up: Follow up with your doctor in about one week as needed. Call for an appointment. Summary of care provided to patient. Understanding of the discharge instructions verbalized by patient. ADDITIONAL INFORMATION Back Pain [Acute Or Chronic] Back pain is usually caused by an injury to the muscles or ligaments of the spine. Sometimes the disks that separate each bone in the spine may bulge and cause pain by pressing on a nearby nerve. Back pain may also appear after a sudden twisting/bending force (such as in a car accident), after a simple awkward movement, or lifting something heavy with poor body positioning. In either case, muscle spasm is often present and adds to the pain. Acute back pain usually gets better in one to two weeks. Back pain related to disk disease, arthritis in the spinal joints or spinal stenosis (narrowing of the spinal canal) can become chronic and last for months or years. Unless you had a physical injury (for example, a car accident or fall) X-rays are usually not ordered for the initial evaluation of back pain. If pain continues and does not respond to medical treatment, x-rays and other tests may be performed at a later time. Home Care: You may need to stay in bed the first few days. But, as soon as possible, begin sitting or walking to avoid problems with prolonged bed rest (muscle weakness, worsening back stiffness and pain, blood clots in the legs). When in bed, try to find a position of comfort. A firm mattress is best. Try lying flat on your back with pillows under your knees. You can also try lying on your side with your knees bent up towards your chest and a pillow between your knees. Avoid prolonged sitting. This puts more stress on the lower back than standing or walking. During the first two days after injury, apply an ICE PACK to the painful area for 20 minutes every 2-4 hours. This will reduce swelling and pain. HEAT (hot shower, hot bath or heating pad) works well for muscle spasm. You can start with ice, then switch to heat after two days. Some patients feel best alternating ice and heat treatments. Use the one method that feels the best to you. You may use acetaminophen (Tylenol) or ibuprofen (Motrin, Advil) to control pain, unless another pain medicine was prescribed. [NOTE: If you have chronic liver or kidney disease or ever had a stomach ulcer or GI bleeding, talk with your doctor before using these medicines.] Be aware of safe lifting methods and do not lift anything over 15 pounds until all the pain is gone. Follow Up with your doctor or this facility if your symptoms do not start to improve after one week. Physical therapy may be needed. [NOTE: If X-rays were taken, they will be reviewed by a radiologist. You will be notified of any new findings that may affect your care.] Get Prompt Medical Attention if any of the following occur: Pain becomes worse or spreads to your legs Weakness or numbness in one or both legs Loss of bowel or bladder control Numbness in the groin or genital area Drug Abuse Use and abuse of such drugs as marijuana, amphetamines (speed, crank), cocaine, heroin or prescription pain medicines (Vicodin, codeine), sedatives and sleeping pills (Valium, Klonopin), PCP, mescaline and LSD may lead to addiction or dependence. Once this occurs, you are at greater risk for any of the following: Craving for the drug and unable to stop using the drug even though you think you want to stop (psychological dependence) Drug withdrawal symptoms if you stop taking the drug (physical dependence) Loss of your job or your family Arrest, conviction and intermediate sentence for possession of an illegal substance or for driving under the influence of such a substance Accidental injuries to yourself or others while you are under the influence of the drug (in a car or at home). HIV infection (much greater risk if you use IV drugs) Other sexually transmitted diseases (herpes, chlamydia, gonorrhea and others) Severe and fatal infection of the heart valves (if you use IV drugs) Stroke, heart attack, hepatitis B or C, kidney failure from overdose Home Care: Admit you have a drug problem. Ask for help from your family and close friends. Seek professional help. This could be in the form of individual psychotherapy or counseling or an outpatient, inpatient, or residential drug treatment program. Join a self-help group for drug abuse. Avoid friends who abuse drugs themselves or tempt you to continue abusing drugs. Eat a balanced diet and begin a regular exercise program. Follow Up with your doctor or as advised by our staff. Contact one of the resources below for help. National [place] on Alcoholism and Drug Dependence www.ncadd.org 238-135-YAPK Narcotics Anonymous www.na.org 252-500-4169 [employer] Alcohol and Substance Abuse Information Center (for referral to treatment programs) www.TapHome 500-165-9924 Get Prompt Medical Attention if any of the following occur: Agitation, anxiety, unable to sleep Unintended weight loss (more than 10 to 15 pounds over 3 months) Seizure Chest pain Fever of 100.4F (38C) or higher, or as directed by your healthcare provider Excess drowsiness or inability to be awakened Shortness of breath Slow breathing under 8 breaths per minute Cough with colored sputum Redness, swelling or tenderness at an injection site Marijuana Abuse Marijuana is the most widely used illegal drug in the [place]. It is called by various names such as pot, weed, blunts, grass, reefer, ganja, hash, hashish. It is usually smoked but can be mixed with foods or brewed as a tea. It is sometimes sold with PCP (Noble Dust) or amphetamine mixed in it. These drugs can cause other harmful side effects. Marijuana can cause the following effects: Changes in mood (stimulated, happy, drowsy, depressed, paranoid) Hallucinations Increased heart rate and blood pressure Increased appetite Time distortion, difficulty concentrating, impaired memory Lung damage (similar to cigarettes with chronic cough, wheezing, frequent colds and bronchitis) You can become psychologically dependent on marijuana. That means the craving to use the drug is emotional or psychological rather than due to physical withdrawal. Is Marijuana Running Your Life? Here are some of the signs: Relying on marijuana to feel good, forget problems, deal with stress or to relax Wanting to be alone most of the time or only with others who use drugs Losing interest in things that used to be important Changes in school or job performance or attendance Spending a lot of time thinking about how to get marijuana Stealing or selling your things so you can buy marijuana Unable to stop using even though you may want to quit Increasing anxiety, anger,or depression Sleeping too much, changes in eating habits (weight loss or gain) Needing to use more to get the same effect Home Care Once you have become addicted to any drug, quitting is hard to do. Most people find they can't quit without help. So, dont try to do this alone. Talk to someone you trust who can support you. Seek professional help. Avoid people and places where drugs are used. That only increases the temptation to use. Follow Up with your doctor or as advised by our staff. For more information or a referral to a treatment center in your area, contact: Your local mental health center or the National Alcohol and Substance Abuse Information Center (362)-566-1544 www.addictioncareLarky.com [place] on Alcoholism and Drug Dependence 846-078-RSGT www.ncadd.org Marijuana Anonymous 364-935-9039 www.marijuana-anonymous.org Get Prompt Medical Attention if any of the following occur: You feel extreme depression, fear, anxiety, or anger toward yourself or others You feel out of control You feel that you may try to harm yourself or another Opiate Abuse Use and abuse of heroin or prescription pain medicines (Vicodin, codeine) may lead to physical ADDICTION or psychological DEPENDENCE. Once this occurs, you are at greater risk for any of the following: - Craving for the drug and unable to stop using the drug even though you think you want to stop (psychological dependence) - Drug withdrawal symptoms if you stop taking the drug (physical addiction) - Loss of your job or your family - Arrest, conviction and intermediate sentence for possession of an illegal substance or for driving under the influence of such a substance - Accidental injuries to yourself or others while you are under the influence of the drug (in a car or at home). - HIV infection (much greater risk if you use IV drugs) - Other sexually transmitted diseases (Herpes, chlamydia, gonorrhea and others) - Severe and fatal infection of the heart valves (if you use IV drugs) - Stroke, heart attack, hepatitis B or C, kidney failure - from overdose Home Care: 1) Admit you have a drug problem. Ask for help from your family and close friends. 2) Seek professional help. This could be individual psychotherapy, counseling, or a drug treatment program (outpatient or residential). 3) Join a self-help group for drug abuse. 4) Avoid friends who abuse drugs themselves or tempt you to continue your habit 5) Eat a balanced diet and begin a regular exercise program. Follow Up with your doctor or as advised by our staff. Contact one of the resources below for help. [place] on Alcoholism and Drug Dependence, www.ncadd.org 583-670-TDFR Narcotics Anonymous (check your phone book for a local listing or call 257-950-7654) www.na.org National Alcohol and Substance Abuse Information Center (for referral to treatment programs) Www.Kartela 339-419-9686 Get Prompt Medical Attention if any of the following occur: -- Symptoms of withdrawal (agitation, anxiety, trembling, sweats, diarrhea, unable to sleep) -- Chest pain -- Unexplained fever over 100.4 F (38.0 C) -- Excessive drowsiness or inability to be awakened -- Slow breathing under 8 breaths per minute -- Shortness of breath or cough with colored sputum -- Redness, swelling or tenderness at an injection site You have been given the following additional information: Back Pain (Acute Or Chronic) Drug Abuse Marijuana Abuse Opiate Abuse (Electronically signed by Ayana Ortiz A.R.N.P. 05/03/2016 20:27)
--- NOTE | 2016-05-05 14:35 | ED MED RECONCILIATION SUMMARY ---
Patient: LASHANDA URIARTE Medication Reconciliation Report [facility] VisitID: [id number] [address] [place] [address] 25y, M Registration Date/Time: 05/03/2016 Weight: 58.9 kg Height/Length: 70 in. BMI: 18.6 ALLERGIES: No Known Drug Allergy The patient's Home Medications are listed below: THE FOLLOWING MEDICATIONS NEED TO BE RECONCILED: OxyCODONE HCl Oral 10 mg, up to 5 x daily The source(s) of the original Home Medication information: Not obtained. The following Medications were given to the patient in the Emergency Department: None. The following Medications were prescribed to the patient: None.
--- NOTE | 2016-05-05 14:35 | ED MED RECONCILIATION SUMMARY ---
Patient: LASHANDA URIARTE Medication Reconciliation Report [facility] VisitID: [id number] [address] [place] [address] 25y, M Registration Date/Time: 05/03/2016 Weight: 58.9 kg Height/Length: 70 in. BMI: 18.6 ALLERGIES: No Known Drug Allergy The patient's Home Medications are listed below: THE FOLLOWING MEDICATIONS NEED TO BE RECONCILED: OxyCODONE HCl Oral 10 mg, up to 5 x daily The source(s) of the original Home Medication information: Not obtained. The following Medications were given to the patient in the Emergency Department: None. The following Medications were prescribed to the patient: None.
--- NOTE | 2016-05-05 14:35 | ED MAR SUMMARY ---
..... Medication Administration Record [facility] [address] [place], [place] [id number] Patient: LASHANDA URIARTE Visit ID: [id number] 25y, M Weight: 58.9 kg Height/Length: 70 in BMI: 18.6 ALLERGIES: No Known Drug Allergy
--- NOTE | 2016-05-05 14:35 | ED ORDER SUMMARY ---
..... Patient: LASHANDA URIARTE OrderSheet [facility] VisitID: [id number] [address] [place] [address] 25y, M Registration Date/Time: 05/03/2016 ORDER SHEET Weight: 58.9 kg (stated) Allergies: No Known Drug Allergy GENERAL ORDERS: MEDICATION ORDERS: Toradol IM 60 mg (NOW) (18:54 05/03/2016 HBivens A.R.N.P.) Decadron IM 8 mg (NOW) (18:54 05/03/2016 HBivens A.R.N.P.) IV FLUIDS: ORDER SHEET NOTES: [Electronically signed by Ayana OrtizR.N.PNathalie (20:27 05/03/2016)] [Electronically signed by Joan Frazier R.N. (14:34 05/05/2016)] [Electronically locked/signed by Joan Frazier R.N. (14:34 05/05/2016)]
--- NOTE | 2016-05-05 14:35 | ED MAR SUMMARY ---
..... Medication Administration Record [facility] [address] [place], [place] [id number] Patient: LASHANDA URIARTE Visit ID: [id number] 25y, M Weight: 58.9 kg Height/Length: 70 in BMI: 18.6 ALLERGIES: No Known Drug Allergy
--- NOTE | 2016-05-05 14:35 | ED NURSING NOTES ---
Clinical Report - Nurses [facility] [address] [place] [address] 05/03/2016 17:51 [id number] Triage time 18:May 03 2016. Acuity: LEVEL 5. Chief Complaint: NECK PAIN and BACK PAIN and NUMBNESS (C5-C6 disk injury). 18:03 05/03/16. SEPSIS SCREEN: Sepsis Screen. Negative (no infection suspected/documented). VIDA COMA SCORE: Vida Coma Scale: 15- eyes open spontaneously (4); best verbal response- oriented x 4 (5); best motor response- obeys commands (6). --18:03 Joan Frazier R.N. 17:57 05/03/16. BP: 95/70. HR: 68. RR: 18. O2 saturation: 99% on room air. Temp: 98.2 F (oral). Pain level now: 08/21. --18:03 Joan Frazier R.N. Weight: 58.9 kg stated. Height/Length: 70 inches Per Patient. BMI: 18.6. --18:00 Joan Frazier R.N. Medications OxyCODONE HCl Oral 10 mg, up to 5 x daily as needed. --18:00 Joan rFazier R.N. Allergies No Known Drug Allergy. --18:00 Joan Frazier R.N. History Arrived by private vehicle. Historian: patient. Primary physician (Dr Vin Forman). Onset. (Nov 2013). He has had numbness, tingling, and trouble walking. History of recent trauma- (patient was throwing bags of drywall into a truck, Nov 13, 2013. He is in the process of getting approval for surgery). 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 PAST MEDICAL HX: Tetanus status: up-to-date. SOCIAL HX: Current every day light tobacco smoker (cigarette)- less than 1/2 a pack per day. History of occasional drug use: marijuana. Recently used drugs days ago. No alcohol use. No infectious disease exposure. ABUSE ASSESSMENT: No report of abuse. --18:03 Joan Frazier R.N. PROBLEMS: Cervical Radiculopathy. Gastroesophageal Reflux Disease. Gastritis. Peptic Ulcer Disease. GI Bleeding. H-pylori. Dehydration. Neck Injury. Sciatica. Back Injury. Vomiting. Headache. Croup. Myofascial Strain. Immunizations. Gingivitis. Nausea. Neck Pain. Dental Pain. Back Pain. --18:00 Joan Frazier R.N. ADDITIONAL SURGERIES: Endoscopy. --18:00 Joan Frazier R.N. Interventions ID band on patient. To treatment room. --18:03 Joan Frazier R.N. PHYSICAL ASSESSMENT 18:04 05/03/16. Ambulatory to room. GENERAL / NEURO / PSYCH: Alert. Oriented X 4. RESPIRATORY: Respirations not labored. Breath sounds within normal limits. CVS: Capillary refill less than 2 seconds. GI / : Abdomen soft and nontender. Bowel sounds within normal limits. BACK: Limited ROM of the neck and back (Cannot rotate side to side). No vertebral point tenderness or soft tissue tenderness. --18:04 Joan Frazier R.N. 18:07 05/03/16. BACK: Limited ROM in the back- in the cervical spine: decreased flexion, extension, right lateral bending, left lateral bending and rotation to the right and left; in the thoracic spine: decreased flexion and extension. --18:07 Joan Frazier R.N. NURSING PROGRESS NOTES 18:04 05/03/16. The plan of care for this patient has been created. Head of bed elevated. Reassurance given. Two patient identifiers checked. Call light placed in reach. Side rails up x 1. Bed placed in lowest position. Brakes of bed on. Patient ready for evaluation- chart flagged and ED physician notified. --18:04 Joan Frazier R.N. 18:42 05/03/16. --18:42 Joan Frazier R.N. 18:40 05/03/16. BP: 120/78 (regular adult cuff) taken on the left arm, while sitting. HR: 71. RR: 18 (regular). O2 saturation: 98% on room air. Temp: 98.2 F (oral). Pain level now: 09/21. --18:42 Joan Frazier R.N. 18:43 05/03/16. ( Patient doing ok, says his pain is increasing, patient does not want anything to drink at this time and has denied a blanket as well). --18:43 Joan Frazier R.N. DISPOSITION / DISCHARGE 19:10 05/03/16. Departure time: 19:May 03 2016. ( Patient refused all medications and left without being discharged). --19:10 Joan Frazier R.N. Locked/Released at 05/05/2016 14:34 by Joan Frazier R.N.
--- NOTE | 2016-05-05 14:35 | ED DISCHARGE INSTRUCTIONS ---
Patient: LASHANDA URIARTE General Instructions [facility] VisitID: [id number] [place] [address] 25y, M Registration Date/Time: 05/03/2016 Chronic nontraumatic lumbar back pain. No radiculopathy, sciatica or neurological deficit. Chronic substance abuse- marijuana, hydrocodone with anxiety. INSTRUCTIONS Warnings: GENERAL WARNINGS: Return or contact your physician immediately if your condition worsens or changes unexpectedly, if not improving as expected, or if other problems arise. SPECIFICALLY, return if you develop incontinence of urine (loss of bladder control). Follow-up: Follow up with your doctor in about one week as needed. Call for an appointment. Summary of care provided to patient. Understanding of the discharge instructions verbalized by patient. ADDITIONAL INFORMATION Back Pain [Acute Or Chronic] Back pain is usually caused by an injury to the muscles or ligaments of the spine. Sometimes the disks that separate each bone in the spine may bulge and cause pain by pressing on a nearby nerve. Back pain may also appear after a sudden twisting/bending force (such as in a car accident), after a simple awkward movement, or lifting something heavy with poor body positioning. In either case, muscle spasm is often present and adds to the pain. Acute back pain usually gets better in one to two weeks. Back pain related to disk disease, arthritis in the spinal joints or spinal stenosis (narrowing of the spinal canal) can become chronic and last for months or years. Unless you had a physical injury (for example, a car accident or fall) X-rays are usually not ordered for the initial evaluation of back pain. If pain continues and does not respond to medical treatment, x-rays and other tests may be performed at a later time. Home Care: You may need to stay in bed the first few days. But, as soon as possible, begin sitting or walking to avoid problems with prolonged bed rest (muscle weakness, worsening back stiffness and pain, blood clots in the legs). When in bed, try to find a position of comfort. A firm mattress is best. Try lying flat on your back with pillows under your knees. You can also try lying on your side with your knees bent up towards your chest and a pillow between your knees. Avoid prolonged sitting. This puts more stress on the lower back than standing or walking. During the first two days after injury, apply an ICE PACK to the painful area for 20 minutes every 2-4 hours. This will reduce swelling and pain. HEAT (hot shower, hot bath or heating pad) works well for muscle spasm. You can start with ice, then switch to heat after two days. Some patients feel best alternating ice and heat treatments. Use the one method that feels the best to you. You may use acetaminophen (Tylenol) or ibuprofen (Motrin, Advil) to control pain, unless another pain medicine was prescribed. [NOTE: If you have chronic liver or kidney disease or ever had a stomach ulcer or GI bleeding, talk with your doctor before using these medicines.] Be aware of safe lifting methods and do not lift anything over 15 pounds until all the pain is gone. Follow Up with your doctor or this facility if your symptoms do not start to improve after one week. Physical therapy may be needed. [NOTE: If X-rays were taken, they will be reviewed by a radiologist. You will be notified of any new findings that may affect your care.] Get Prompt Medical Attention if any of the following occur: Pain becomes worse or spreads to your legs Weakness or numbness in one or both legs Loss of bowel or bladder control Numbness in the groin or genital area Drug Abuse Use and abuse of such drugs as marijuana, amphetamines (speed, crank), cocaine, heroin or prescription pain medicines (Vicodin, codeine), sedatives and sleeping pills (Valium, Klonopin), PCP, mescaline and LSD may lead to addiction or dependence. Once this occurs, you are at greater risk for any of the following: Craving for the drug and unable to stop using the drug even though you think you want to stop (psychological dependence) Drug withdrawal symptoms if you stop taking the drug (physical dependence) Loss of your job or your family Arrest, conviction and nursing home sentence for possession of an illegal substance or for driving under the influence of such a substance Accidental injuries to yourself or others while you are under the influence of the drug (in a car or at home). HIV infection (much greater risk if you use IV drugs) Other sexually transmitted diseases (herpes, chlamydia, gonorrhea and others) Severe and fatal infection of the heart valves (if you use IV drugs) Stroke, heart attack, hepatitis B or C, kidney failure from overdose Home Care: Admit you have a drug problem. Ask for help from your family and close friends. Seek professional help. This could be in the form of individual psychotherapy or counseling or an outpatient, inpatient, or residential drug treatment program. Join a self-help group for drug abuse. Avoid friends who abuse drugs themselves or tempt you to continue abusing drugs. Eat a balanced diet and begin a regular exercise program. Follow Up with your doctor or as advised by our staff. Contact one of the resources below for help. National [place] on Alcoholism and Drug Dependence www.ncadd.org 276-775-GRIP Narcotics Anonymous www.na.org 296-360-4861 [employer] Alcohol and Substance Abuse Information Center (for referral to treatment programs) www.dINK 453-531-5044 Get Prompt Medical Attention if any of the following occur: Agitation, anxiety, unable to sleep Unintended weight loss (more than 10 to 15 pounds over 3 months) Seizure Chest pain Fever of 100.4F (38C) or higher, or as directed by your healthcare provider Excess drowsiness or inability to be awakened Shortness of breath Slow breathing under 8 breaths per minute Cough with colored sputum Redness, swelling or tenderness at an injection site Marijuana Abuse Marijuana is the most widely used illegal drug in the [place]. It is called by various names such as pot, weed, blunts, grass, reefer, ganja, hash, hashish. It is usually smoked but can be mixed with foods or brewed as a tea. It is sometimes sold with PCP (Noble Dust) or amphetamine mixed in it. These drugs can cause other harmful side effects. Marijuana can cause the following effects: Changes in mood (stimulated, happy, drowsy, depressed, paranoid) Hallucinations Increased heart rate and blood pressure Increased appetite Time distortion, difficulty concentrating, impaired memory Lung damage (similar to cigarettes with chronic cough, wheezing, frequent colds and bronchitis) You can become psychologically dependent on marijuana. That means the craving to use the drug is emotional or psychological rather than due to physical withdrawal. Is Marijuana Running Your Life? Here are some of the signs: Relying on marijuana to feel good, forget problems, deal with stress or to relax Wanting to be alone most of the time or only with others who use drugs Losing interest in things that used to be important Changes in school or job performance or attendance Spending a lot of time thinking about how to get marijuana Stealing or selling your things so you can buy marijuana Unable to stop using even though you may want to quit Increasing anxiety, anger,or depression Sleeping too much, changes in eating habits (weight loss or gain) Needing to use more to get the same effect Home Care Once you have become addicted to any drug, quitting is hard to do. Most people find they can't quit without help. So, dont try to do this alone. Talk to someone you trust who can support you. Seek professional help. Avoid people and places where drugs are used. That only increases the temptation to use. Follow Up with your doctor or as advised by our staff. For more information or a referral to a treatment center in your area, contact: Your local mental health center or the National Alcohol and Substance Abuse Information Center (178)-168-8284 www.addictioncare[employer].com [employer] [place] on Alcoholism and Drug Dependence 738-970-TRUM www.ncadd.org Marijuana Anonymous 321-867-5913 www.marijuana-anonymous.org Get Prompt Medical Attention if any of the following occur: You feel extreme depression, fear, anxiety, or anger toward yourself or others You feel out of control You feel that you may try to harm yourself or another Opiate Abuse Use and abuse of heroin or prescription pain medicines (Vicodin, codeine) may lead to physical ADDICTION or psychological DEPENDENCE. Once this occurs, you are at greater risk for any of the following: - Craving for the drug and unable to stop using the drug even though you think you want to stop (psychological dependence) - Drug withdrawal symptoms if you stop taking the drug (physical addiction) - Loss of your job or your family - Arrest, conviction and nursing home sentence for possession of an illegal substance or for driving under the influence of such a substance - Accidental injuries to yourself or others while you are under the influence of the drug (in a car or at home). - HIV infection (much greater risk if you use IV drugs) - Other sexually transmitted diseases (Herpes, chlamydia, gonorrhea and others) - Severe and fatal infection of the heart valves (if you use IV drugs) - Stroke, heart attack, hepatitis B or C, kidney failure - from overdose Home Care: 1) Admit you have a drug problem. Ask for help from your family and close friends. 2) Seek professional help. This could be individual psychotherapy, counseling, or a drug treatment program (outpatient or residential). 3) Join a self-help group for drug abuse. 4) Avoid friends who abuse drugs themselves or tempt you to continue your habit 5) Eat a balanced diet and begin a regular exercise program. Follow Up with your doctor or as advised by our staff. Contact one of the resources below for help. [employer] [place] on Alcoholism and Drug Dependence, www.ncadd.org 919-071-TBAZ Narcotics Anonymous (check your phone book for a local listing or call 833-779-7603) www.na.org National Alcohol and Substance Abuse Information Center (for referral to treatment programs) Www.[employer] 545-344-1300 Get Prompt Medical Attention if any of the following occur: -- Symptoms of withdrawal (agitation, anxiety, trembling, sweats, diarrhea, unable to sleep) -- Chest pain -- Unexplained fever over 100.4 F (38.0 C) -- Excessive drowsiness or inability to be awakened -- Slow breathing under 8 breaths per minute -- Shortness of breath or cough with colored sputum -- Redness, swelling or tenderness at an injection site You have been given the following additional information: Back Pain (Acute Or Chronic) Drug Abuse Marijuana Abuse Opiate Abuse (Electronically signed by Ayana Ortiz A.R.N.P. 05/03/2016 20:27)
--- NOTE | 2016-05-05 14:35 | ED NURSING NOTES ---
Clinical Report - Nurses [facility] [address] [place] [address] 05/03/2016 17:51 [id number] Triage time 18:May 03 2016. Acuity: LEVEL 5. Chief Complaint: NECK PAIN and BACK PAIN and NUMBNESS (C5-C6 disk injury). 18:03 05/03/16. SEPSIS SCREEN: Sepsis Screen. Negative (no infection suspected/documented). VIDA COMA SCORE: Vida Coma Scale: 15- eyes open spontaneously (4); best verbal response- oriented x 4 (5); best motor response- obeys commands (6). --18:03 Joan Frazier R.N. 17:57 05/03/16. BP: 95/70. HR: 68. RR: 18. O2 saturation: 99% on room air. Temp: 98.2 F (oral). Pain level now: 08/21. --18:03 Joan Frazier R.N. Weight: 58.9 kg stated. Height/Length: 70 inches Per Patient. BMI: 18.6. --18:00 Joan Frazier R.N. Medications OxyCODONE HCl Oral 10 mg, up to 5 x daily as needed. --18:00 Joan Frazier R.N. Allergies No Known Drug Allergy. --18:00 Joan Frazier R.N. History Arrived by private vehicle. Historian: patient. Primary physician (Dr Vin Forman). Onset. (Nov 2013). He has had numbness, tingling, and trouble walking. History of recent trauma- (patient was throwing bags of drywall into a truck, Nov 13, 2013. He is in the process of getting approval for surgery). 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 PAST MEDICAL HX: Tetanus status: up-to-date. SOCIAL HX: Current every day light tobacco smoker (cigarette)- less than 1/2 a pack per day. History of occasional drug use: marijuana. Recently used drugs days ago. No alcohol use. No infectious disease exposure. ABUSE ASSESSMENT: No report of abuse. --18:03 Joan Frazier R.N. PROBLEMS: Cervical Radiculopathy. Gastroesophageal Reflux Disease. Gastritis. Peptic Ulcer Disease. GI Bleeding. H-pylori. Dehydration. Neck Injury. Sciatica. Back Injury. Vomiting. Headache. Croup. Myofascial Strain. Immunizations. Gingivitis. Nausea. Neck Pain. Dental Pain. Back Pain. --18:00 Joan Frazier R.N. ADDITIONAL SURGERIES: Endoscopy. --18:00 Joan Frazier R.N. Interventions ID band on patient. To treatment room. --18:03 Joan Frazier R.N. PHYSICAL ASSESSMENT 18:04 05/03/16. Ambulatory to room. GENERAL / NEURO / PSYCH: Alert. Oriented X 4. RESPIRATORY: Respirations not labored. Breath sounds within normal limits. CVS: Capillary refill less than 2 seconds. GI / : Abdomen soft and nontender. Bowel sounds within normal limits. BACK: Limited ROM of the neck and back (Cannot rotate side to side). No vertebral point tenderness or soft tissue tenderness. --18:04 Joan Frazier R.N. 18:07 05/03/16. BACK: Limited ROM in the back- in the cervical spine: decreased flexion, extension, right lateral bending, left lateral bending and rotation to the right and left; in the thoracic spine: decreased flexion and extension. --18:07 Joan Frazier R.N. NURSING PROGRESS NOTES 18:04 05/03/16. The plan of care for this patient has been created. Head of bed elevated. Reassurance given. Two patient identifiers checked. Call light placed in reach. Side rails up x 1. Bed placed in lowest position. Brakes of bed on. Patient ready for evaluation- chart flagged and ED physician notified. --18:04 Joan Frazier R.N. 18:42 05/03/16. --18:42 Joan Frazier R.N. 18:40 05/03/16. BP: 120/78 (regular adult cuff) taken on the left arm, while sitting. HR: 71. RR: 18 (regular). O2 saturation: 98% on room air. Temp: 98.2 F (oral). Pain level now: 09/21. --18:42 Joan Frazier R.N. 18:43 05/03/16. ( Patient doing ok, says his pain is increasing, patient does not want anything to drink at this time and has denied a blanket as well). --18:43 Joan Frazier R.N. DISPOSITION / DISCHARGE 19:10 05/03/16. Departure time: 19:May 03 2016. ( Patient refused all medications and left without being discharged). --19:10 Joan Frazier R.N. Locked/Released at 05/05/2016 14:34 by Joan Frazier R.N.
== END 2016-05-03 19:11 | disposition home or self-care (01) ==
LOC: ED SRH 17:51
DX: M54.5 Low back pain (principal); G89.29 Other chronic pain; F11.188 Opioid abuse with other opioid-induced disorder; F12.180 Cannabis abuse with cannabis-induced anxiety disorder; F17.200 Nicotine dependence, unspecified, uncomplicated; Z79.891 Long term (current) use of opiate analgesic

== ENCOUNTER 2016-06-16 19:12 | Emergency (ER) | payer OTHER ==
--- NOTE | 2016-06-16 19:49 | ED ORDER SUMMARY ---
..... Patient: LASHANDA URIARTE OrderSheet [facility] VisitID: [id number] [place] [address] 25y, M Registration Date/Time: 06/16/2016 ORDER SHEET Weight: 63.5 kg (stated) Allergies: No Known Drug Allergy GENERAL ORDERS: MEDICATION ORDERS: Toradol IM 60 mg (NOW) (19:42 06/16/2016 HBivens A.R.N.P.) (20:04 HSoule) Decadron IM 8 mg (NOW) (19:42 06/16/2016 HBivens A.R.N.P.) (Cancelled: Patient Afhuvtg03:04 HSoule) IV FLUIDS: ORDER SHEET NOTES: [Electronically signed by Ayana Ortiz A.R.N.P. (20:13 06/16/2016)] [Electronically signed by Micaela Kwong (21:04 06/16/2016)] [Electronically locked/signed by Micaela Kwong (21:04 06/16/2016)]
--- NOTE | 2016-06-16 19:49 | ED CLINICAL REPORT ---
Clinical Report - Physicians/Mid Levels [facility] [address] [place] [address] 06/16/2016 19:12 Patient: LASHANDA URIARTE Time Seen: 19:20; upon arrival, initial patient contact, initial documentation, patient care assumed. Arrived- By private vehicle. Historian- patient. HISTORY OF PRESENT ILLNESS Chief Complaint: NECK PAIN and CHRONIC BACK and NECK PAIN. Modifying factors- worsened by standing, walking, rotation of the head or body to the right or left, neck flexion or bending over. Not relieved by anything. Onset- months ago and it is still present. It is described as being severe and in the area of the left side of the cervical spine, cervical spine and right side of the cervical spine and radiating to the upper back and low back (from neck down spine). The quality is noted to be "pain" and similar to prior episodes. No bladder dysfunction, bowel dysfunction, sensory loss or motor loss. Additional history - states he finally as surgery scheduled on 06/21, in 5 days. Patient denies an injury. Similar symptoms previously: Chronically, as bad. Recent medical care: The patient was seen recently at another facility in the emergency department. ( found on [facility], pt was at [facility] on 06[facility]16 for mental health eval). REVIEW OF SYSTEMS No fever, difficulty breathing, chest pain or abdominal pain. All systems otherwise negative, except as recorded above. PAST HISTORY See nurses notes. PAST HISTORY See nurses notes. PROBLEMS: Cervical Radiculopathy. Gastroesophageal Reflux Disease. Gastritis. Peptic Ulcer Disease. GI Bleeding. H-pylori. Dehydration. Neck Injury. Sciatica. Back Injury. Vomiting. Headache. Croup. Myofascial Strain. Immunizations. Gingivitis. Nausea. Neck Pain. Dental Pain. Back Pain. --18:00 Joan Frazier R.N. ADDITIONAL SURGERIES: Endoscopy. --18:00 Joan Frazier R.N. SOCIAL HISTORY Light tobacco smoker. History of heavy drug use: marijuana. No alcohol use. No recent travel. Is a local resident. FAMILY HISTORY Negative. ADDITIONAL NOTES The nursing notes have been reviewed with agreement regarding the chief complaint, HPI, ROS, PMH and patient medications and allergies. PHYSICAL EXAM Vital Signs: 06/16/2016 19:20 BP: 128/90. HR: 85. RR: 16. O2 saturation: 100%. Temp: 98 F. Pain level now: 09/21. Have been reviewed as normal and appear to be correct. Appearance: Alert. No acute distress. HEENT: Normal external inspection. Eyes: Pupils equal, round and reactive to light. Neck: Neck tenderness. Abnormal inspection. Painful ROM. Mild pain in the entire posterior neck upon turning the head to the right, turning the head to the left, lifting the head, flexing the neck and extending the neck. Decrease in ROM. No muscle spasm in the neck. Moderate vertebral tenderness of the upper, mid and lower cervical spine. Moderate soft tissue tenderness in the right upper, mid and lower neck area, left upper, mid and lower neck area and upper, mid and lower central neck area. No lymphadenopathy or meningeal signs. CVS: Normal heart rate and rhythm. Heart sounds normal. Pulses normal. Respiratory: No respiratory distress. Breath sounds normal. Chest nontender. Back: Normal inspection. No tenderness. Painless ROM. Skin: Skin warm and dry. Normal skin color. No rash. Normal skin turgor. Extremities: Extremities exhibit normal ROM. Extremities nontender. Neuro: Oriented X 3. Mood/affect normal. No motor deficit. No sensory deficit. PROGRESS AND PROCEDURES Course of Care: 193. pt well known to me pt has scarlet aguero chemical dependency, psych and frequent visits for chronic issues, large amounts of narcs, getting oxycodone 10mg #150-180 every month, last rx 06/06, and #9 er visits, see report for full details. Patient counseled in person regarding the patient's stable condition and diagnosis. Differential Diagnosis: I considered sprain, degenerative joint disease and arthritis as a possible cause of joint pain in this patient. This is a partial list of diagnoses considered. (chronic neck pain, substance abuse, cervical stenosis, oa). Disposition: Discharged home in good and improved condition (19:48). Condition: good and stable. 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 No neuro deficit. INSTRUCTIONS (continue with current pain medication as prescribed and surgery as scheduled on 06/21). Warnings: GENERAL WARNINGS: Return or contact your physician immediately if your condition worsens or changes unexpectedly, if not improving as expected, or if other problems arise. SPECIFICALLY, return if you develop numbness or incontinence of urine (loss of bladder control). Prescription Medications: Lodine 300 mg capsules: Take 1 capsule orally every 8 hours as needed. Dispense thirty (30). No refills. Substitution is permissible. Medrol Dosepak: take according to package directions. Dispense one (1) dosepak. No refills. Substitution is permissible. Follow-up: Follow up with a neurosurgeon in five days as scheduled even if well. Summary of care provided to patient. Understanding of the discharge instructions verbalized by patient. (Electronically signed by Ayana Ortiz A.R.N.P. 06/16/2016 20:13)
--- NOTE | 2016-06-16 19:49 | ED ORDER SUMMARY ---
..... Patient: LASHANDA URIARTE OrderSheet [facility] VisitID: [id number] [place] [address] 25y, M Registration Date/Time: 06/16/2016 ORDER SHEET Weight: 63.5 kg (stated) Allergies: No Known Drug Allergy GENERAL ORDERS: MEDICATION ORDERS: Toradol IM 60 mg (NOW) (19:42 06/16/2016 HBivens A.R.N.P.) (20:04 HSoule) Decadron IM 8 mg (NOW) (19:42 06/16/2016 HBivens A.R.N.P.) (Cancelled: Patient Dyyhpyg12:04 HSoule) IV FLUIDS: ORDER SHEET NOTES: [Electronically signed by Ayana Ortiz A.R.N.P. (20:13 06/16/2016)] [Electronically signed by Micaela Kwong (21:04 06/16/2016)] [Electronically locked/signed by Micaela Kwong (21:04 06/16/2016)]
--- NOTE | 2016-06-16 19:49 | ED NURSING NOTES ---
Clinical Report - Nurses [facility] [address] [place] [address] 06/16/2016 19:12 [id number] Triage time 19:20 Jun 16 2016. Acuity: LEVEL 3. Chief Complaint: NECK PAIN. 19:24 06/16/16. SEPSIS SCREEN: Sepsis Screen: negative. Negative (no infection suspected/documented). K[place]UM COMA SCORE: [place] Coma Scale: 15- eyes open spontaneously (4); best verbal response- oriented x 4 (5); best motor response- obeys commands (6). --19:24 Micaela Kwong 19:20 06/16/16. BP: 128/90. HR: 85. RR: 16. O2 saturation: 100%. Temp: 98 F (oral). Pain level now: 09/21. --19:24 Micaela Kwong. Weight: 63.5 kg stated. Height/Length: 70 inches Per Patient. BMI: 20.1. --19:23 Miceala Kwong. Medications Oxycodone-Acetaminophen Oral. --19:22 Micaela Kwong. Allergies No Known Drug Allergy. --19:22 Micaela Kwong. History Arrived by private vehicle. Historian: patient. Unaccompanied. Primary physician (dandy lema). This started today. This is a recurrent problem. ( Patient reports he was injured at work . He reports a ruptured disc in C4 and C5. He is scheduled for surgery Sunday. He reports pain today that his pain is unbearable. He reports he is here because he took his pain medications and he is still in pain.). PAST MEDICAL HX: Immunizations: up-to-date. SOCIAL HX: Never smoker. No alcohol use or drug use. No infectious disease exposure. ABUSE ASSESSMENT: No report of abuse. FALL RISK ASSESSMENT: Fall risk assessment completed. No fall risk identified. NUTRITIONAL RISK ASSESSMENT: The nutritional risk assessment revealed no deficiencies. FUNCTIONAL ASSESSMENT: Functional assessment: no impairments noted. LEARNING NEEDS ASSESSMENT: The learning needs assessment revealed no barriers. SKIN INTEGRITY ASSESSMENT: Skin integrity risk assessment completed. No skin integrity risk identified. --19:24 Micaela Kwong. PROBLEMS: Substance Abuse. Gastritis. Peptic Ulcer Disease. Neck Injury. Sciatica. Tetanus Status. Immunizations. Dental Pain. --19: Micaela Kwong. ADDITIONAL SURGERIES: Endoscopy. --19: Micaela Kwong. Interventions ID band on patient. To treatment room. --19:24 Micaela Kwong. PHYSICAL ASSESSMENT To room via wheelchair. GENERAL / NEURO / PSYCH: Alert. Oriented X 4. Appears in pain. HEENT: No facial asymmetry noted. Mucous membranes are pink. RESPIRATORY: Respirations not labored. CVS: Normal sinus rhythm noted. SKIN: Skin is warm and dry. BACK: Limited ROM in the back- (due to pain). --19:24 Micaela Kwong. NURSING PROGRESS NOTES 19:06/16/16. Pulse oximeter and NIBP monitor placed on patient. Patient gowned. Warming measures: blanket applied. Reassurance given to the patient. Two patient identifiers checked. Call light placed in reach. Side rails up x 1. Bed placed in lowest position. Brakes of bed on. Patient ready for evaluation- chart flagged and ED physician notified. --19:24 Micaela Kwong 19:59 06/16/2016 Toradol (Ketorolac Tromethamine) IM 60 mg given. Given in the right deltoid. Allergies verified and confirmed 5 rights. --20:04 Micaela Kwong. DISPOSITION / DISCHARGE 20:06/16/16. Condition at departure: stable. No learning barriers present. Discharge instructions provided and reviewed with the patient. Reviewed medication(s) side effects, precautions, dosing and course information. Prescription(s) given to the patient. Patient verbalized understanding. Written instructions provided in [place]. ( Follow up with your PCP if needed prior to your scheduled surgery Sunday. Rest and take prescribed medications. Return if symptoms worsen. Patient verbalized understanding and had no additional questions at this time.). The patient was discharged by the physician. He was discharged home and unaccompanied at time of discharge. He left the Emergency Department ambulatory and via private vehicle. Driving (taxi). --21:03 Micaela Kwong 20:00 06/16/16. BP: deferred. HR: deferred. RR: deferred. O2 saturation: deferred. Temp: deferred. Pain level now deferred. --21:03 Micaela Kwong. Locked/Released at 06/16/2016 21:04 by Micaela Kwong,
--- NOTE | 2016-06-16 21:04 | ED MED RECONCILIATION SUMMARY ---
Patient: LASHANDA URIARTE Medication Reconciliation Report [facility] VisitID: [id number] [address] [place] [address] 25y, M Registration Date/Time: 06/16/2016 Weight: 63.5 kg Height/Length: 70 in. BMI: 20.1 ALLERGIES: No Known Drug Allergy The patient's Home Medications are listed below: THE FOLLOWING MEDICATIONS NEED TO BE RECONCILED: Oxycodone-Acetaminophen Oral The source(s) of the original Home Medication information: Not obtained. The following Medications were given to the patient in the Emergency Department: Toradol [IM] IM 60 mg, administered: 06/16/2016 7:59:00 PM The following Medications were prescribed to the patient: Lodine 300 mg capsules: Take 1 capsule orally every 8 hours as needed. Dispense thirty (30). No refills. Substitution is permissible. -- Ayana Ortiz, KingsleyR.N.P. Medrol Dosepak: take according to package directions. Dispense one (1) dosepak. No refills. Substitution is permissible. -- Ayana Ortiz, [place].R.N.P.
--- NOTE | 2016-06-16 21:04 | ED MAR SUMMARY ---
..... Medication Administration Record [facility] [address] [place] [address] Patient: LASHANDA URIARTE Visit ID: [id number] 25y, M Weight: 63.5 kg Height/Length: 70 in BMI: 20.1 ALLERGIES: No Known Drug Allergy Given 19:59 06/16/2016 Micaela Kwong, Medication Administered: TORADOL [IM] (KETOROLAC TROMETHAMINE), Dose: 60 mg IM. Medication Ordered: Toradol IM 60 mg (NOW).
--- NOTE | 2016-06-16 21:04 | ED DISCHARGE INSTRUCTIONS ---
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 No neuro deficit. INSTRUCTIONS (continue with current pain medication as prescribed and surgery as scheduled on 06/21). Warnings: GENERAL WARNINGS: Return or contact your physician immediately if your condition worsens or changes unexpectedly, if not improving as expected, or if other problems arise. SPECIFICALLY, return if you develop numbness or incontinence of urine (loss of bladder control). Prescription Medications: Lodine 300 mg capsules: Take 1 capsule orally every 8 hours as needed. Dispense thirty (30). No refills. Substitution is permissible. Medrol Dosepak: take according to package directions. Dispense one (1) dosepak. No refills. Substitution is permissible. Follow-up: Follow up with a neurosurgeon in five days as scheduled even if well. Summary of care provided to patient. Understanding of the discharge instructions verbalized by patient. ADDITIONAL INFORMATION Neck Pain [No Trauma] There are several possible causes of neck pain without injury: You can get a minor ligament sprain or muscle strain from a sudden minor neck movement. Sleeping with your neck in an awkward position can also cause this. Some persons respond to emotional stress by tensing the muscles of their neck, shoulders and upper back. Chronic spasm in these muscles can cause neck pain and sometimes headaches. Gradualwear and tearof the joints in the spine can cause degenerative arthritis.This can be a source of occasional or chronic neck pain. With aging or repeated small injuries to the neck, the spinal disks (the cushions between each spinal bone) may bulge and put pressure on a nearby spinal nerve. This causes tingling, pain or numbness spreading from the neck to the shoulder, arm or hand on one side. Acute neck pain usually gets better in one to two weeks. Neck pain related to disk disease, arthritis in the spinal joints or spinal stenosis (narrowing of the spinal canal) can become chronic and last for months or years. Unless you had a forceful physical injury (for example, a car accident or fall), X-rays are usually not ordered for the initial evaluation of neck pain. If pain continues and does not respond to medical treatment, x-rays and other tests may be performed at a later time. Home Care: Rest and relax the muscles. Use a comfortable pillow that supports the head and keeps the spine in a neutral position. The position of the head should not be tilted forward or backward. A rolled up towel may help for a custom fit. Some persons find relief with heat (hot shower, hot bath or heating pad) and massage, while others prefer cold packs (crushed or cubed ice in a plastic bag, wrapped in a towel) . Try both and use the method that feels best for 20 minutes several times a day. You may use acetaminophen (Tylenol) or ibuprofen (Motrin, Advil) to control pain, unless another medicine was prescribed. [ NOTE : If you have chronic liver or kidney disease or ever had a stomach ulcer or GI bleeding, talk with your doctor before using these medicines.] Follow Up with your physician or this facility if your symptoms do not show signs of improvement after one week. Physical therapy or further tests may be needed. [NOTE: A radiologist will review any X-rays or CT scans that were taken. We will notify you of any new findings that may affect your care.] Get Prompt Medical Attention if any of the following occur: Pain becomes worse or spreads into one or both arms Weakness or numbness in one or both arms Increasing headache Neck swelling, difficulty or painful swallowing Fever of 100.4F (38C) or higher, or as directed by your healthcare provider Pinched Nerve, Neck [Cervical Radiculopathy] A pinched nerve in the neck (also called "Cervical Radiculopathy") is caused by irritation or pressure on the nerve that goes from the spinal cord to the arm. This may be caused by a bulging spinal disk (a "spinal disk" is the cushion between each spinal bone) or narrowing of the spinal joint due to arthritis. This can cause numbness, tingling, deep aching or electrical shooting pain from the side of the neck all the way down to the fingers on one side. A pinched nerve may begin after a sudden turning/bending force (such as in a car accident) or after a simple awkward movement. In either case, muscle spasm is commonly present and contributes to the pain. Home Care: 1) Rest and relax the muscles. Use a comfortable pillow that supports the head and keeps the spine in a neutral position. The position of the head should not be tilted forward or backward. A rolled up towel may help for a custom fit. 2) Some persons find relief with heat (hot shower, hot bath or heating pad) and massage, while others prefer cold packs (crushed or cubed ice in a plastic bag, wrapped in a towel) . Try both and use the method that feels best for 20 minutes several times a day. 3) You may use acetaminophen (Tylenol) or ibuprofen (Motrin, Advil) to control pain, unless another medicine was prescribed. [ NOTE : If you have chronic liver or kidney disease or ever had a stomach ulcer or GI bleeding, talk with your doctor before using these medicines.] Follow Up with your physician or this facility if your symptoms do not show signs of improvement after one week. Further testing may be needed. [NOTE: If x-rays were taken, they will be reviewed by a radiologist. You will be notified of any new findings that may affect your care.] Get Prompt Medical Attention if any of the following occur: -- Pain becomes worse and not controlled by prescribed pain medicine -- Weakness in the arm -- Increasing numbness in the arm -- Trouble breathing or swallowing Methylprednisolone Oral tablet What is this medicine? METHYLPREDNISOLONE (meth ill pred NISS oh lone) is a corticosteroid. It is commonly used to treat inflammation of the skin, joints, lungs, and other organs. Common conditions treated include asthma, allergies, and arthritis. It is also used for other conditions, such as blood disorders and diseases of the adrenal glands. How should I use this medicine? Take this medicine by mouth with a drink of water. Follow the directions on the prescription label. Take it with food or milk to avoid stomach upset. If you are taking this medicine once a day, take it in the morning. Do not take more medicine than you are told to take. Do not suddenly stop taking your medicine because you may develop a severe reaction. Your doctor will tell you how much medicine to take. If your doctor wants you to stop the medicine, the dose may be slowly lowered over time to avoid any side effects. Talk to your janitor head regarding the use of this medicine in children. Special care may be needed. What side effects may I notice from receiving this medicine? Side effects that you should report to your doctor or health career manager as soon as possible: allergic reactions like skin rash, itching or hives, swelling of the face, lips, or tongue eye pain, decreased or blurred vision, or bulging eyes fever, sore throat, sneezing, cough, or other signs of infection, wounds that will not heal increased thirst mental depression, mood swings, mistaken feelings of self importance or of being mistreated pain in hips, back, ribs, arms, shoulders, or legs swelling of the ankles, feet, hands trouble passing urine or change in the amount of urine Side effects that usually do not require medical attention (report to your doctor or health career manager if they continue or are bothersome): confusion, excitement, restlessness headache nausea, vomiting skin problems, acne, thin and shiny skin weight gain What may interact with this medicine? Do not take this medicine with any of the following medications: mifepristone This medicine may also interact with the following medications: tacrolimus vaccines warfarin What if I miss a dose? If you miss a dose, take it as soon as you can. If it is almost time for your next dose, talk to your doctor or health career manager. You may need to miss a dose or take an extra dose. Do not take double or extra doses without advice. Where should I keep my medicine? Keep out of the reach of children. Store at room temperature between 20 and 25 degrees C (68 and 77 degrees F). Throw away any unused medicine after the expiration date. What should I tell my health care provider before I take this medicine? They need to know if you have any of these conditions: Whitney's syndrome diabetes glaucoma heart problems or disease high blood pressure infection such as herpes, measles, tuberculosis, or chickenpox kidney disease liver disease mental problems myasthenia gravis osteoporosis seizures stomach ulcer or intestine disease including colitis and diverticulitis thyroid problem an unusual or allergic reaction to lactose, methylprednisolone, other medicines, foods, dyes, or preservatives or trying to get breast-feeding What should I watch for while using this medicine? Visit your doctor or health career manager for regular checks on your progress. If you are taking this medicine for a long time, carry an identification card with your name and address, the type and dose of your medicine, and your doctor's name and address. The medicine may increase your risk of getting an infection. Stay away from people who are sick. Tell your doctor or health career manager if you are around anyone with measles or chickenpox. If you are going to have surgery, tell your doctor or health career manager that you have taken this medicine within the last twelve months. Ask your doctor or health career manager about your diet. You may need to lower the amount of salt you eat. The medicine can increase your blood sugar. If you are a diabetic check with your doctor if you need help adjusting the dose of your diabetic medicine. You have been given the following additional information: Neck Pain, No Trauma Radiculopathy, Cervical Methylprednisolone Oral tablet (Electronically signed by Ayana Ortiz A.R.N.P. 06/16/2016 20:13)
--- NOTE | 2016-06-16 21:04 | ED MAR SUMMARY ---
..... Medication Administration Record [facility] [address] [place] [address] Patient: LASHANDA URIARTE Visit ID: [id number] 25y, M Weight: 63.5 kg Height/Length: 70 in BMI: 20.1 ALLERGIES: No Known Drug Allergy Given 19:59 06/16/2016 Micaela Kwong, Medication Administered: TORADOL [IM] (KETOROLAC TROMETHAMINE), Dose: 60 mg IM. Medication Ordered: Toradol IM 60 mg (NOW).
--- NOTE | 2016-06-16 21:04 | ED DISCHARGE INSTRUCTIONS ---
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 No neuro deficit. INSTRUCTIONS (continue with current pain medication as prescribed and surgery as scheduled on 06/21). Warnings: GENERAL WARNINGS: Return or contact your physician immediately if your condition worsens or changes unexpectedly, if not improving as expected, or if other problems arise. SPECIFICALLY, return if you develop numbness or incontinence of urine (loss of bladder control). Prescription Medications: Lodine 300 mg capsules: Take 1 capsule orally every 8 hours as needed. Dispense thirty (30). No refills. Substitution is permissible. Medrol Dosepak: take according to package directions. Dispense one (1) dosepak. No refills. Substitution is permissible. Follow-up: Follow up with a neurosurgeon in five days as scheduled even if well. Summary of care provided to patient. Understanding of the discharge instructions verbalized by patient. ADDITIONAL INFORMATION Neck Pain [No Trauma] There are several possible causes of neck pain without injury: You can get a minor ligament sprain or muscle strain from a sudden minor neck movement. Sleeping with your neck in an awkward position can also cause this. Some persons respond to emotional stress by tensing the muscles of their neck, shoulders and upper back. Chronic spasm in these muscles can cause neck pain and sometimes headaches. Gradualwear and tearof the joints in the spine can cause degenerative arthritis.This can be a source of occasional or chronic neck pain. With aging or repeated small injuries to the neck, the spinal disks (the cushions between each spinal bone) may bulge and put pressure on a nearby spinal nerve. This causes tingling, pain or numbness spreading from the neck to the shoulder, arm or hand on one side. Acute neck pain usually gets better in one to two weeks. Neck pain related to disk disease, arthritis in the spinal joints or spinal stenosis (narrowing of the spinal canal) can become chronic and last for months or years. Unless you had a forceful physical injury (for example, a car accident or fall), X-rays are usually not ordered for the initial evaluation of neck pain. If pain continues and does not respond to medical treatment, x-rays and other tests may be performed at a later time. Home Care: Rest and relax the muscles. Use a comfortable pillow that supports the head and keeps the spine in a neutral position. The position of the head should not be tilted forward or backward. A rolled up towel may help for a custom fit. Some persons find relief with heat (hot shower, hot bath or heating pad) and massage, while others prefer cold packs (crushed or cubed ice in a plastic bag, wrapped in a towel) . Try both and use the method that feels best for 20 minutes several times a day. You may use acetaminophen (Tylenol) or ibuprofen (Motrin, Advil) to control pain, unless another medicine was prescribed. [ NOTE : If you have chronic liver or kidney disease or ever had a stomach ulcer or GI bleeding, talk with your doctor before using these medicines.] Follow Up with your physician or this facility if your symptoms do not show signs of improvement after one week. Physical therapy or further tests may be needed. [NOTE: A radiologist will review any X-rays or CT scans that were taken. We will notify you of any new findings that may affect your care.] Get Prompt Medical Attention if any of the following occur: Pain becomes worse or spreads into one or both arms Weakness or numbness in one or both arms Increasing headache Neck swelling, difficulty or painful swallowing Fever of 100.4F (38C) or higher, or as directed by your healthcare provider Pinched Nerve, Neck [Cervical Radiculopathy] A pinched nerve in the neck (also called "Cervical Radiculopathy") is caused by irritation or pressure on the nerve that goes from the spinal cord to the arm. This may be caused by a bulging spinal disk (a "spinal disk" is the cushion between each spinal bone) or narrowing of the spinal joint due to arthritis. This can cause numbness, tingling, deep aching or electrical shooting pain from the side of the neck all the way down to the fingers on one side. A pinched nerve may begin after a sudden turning/bending force (such as in a car accident) or after a simple awkward movement. In either case, muscle spasm is commonly present and contributes to the pain. Home Care: 1) Rest and relax the muscles. Use a comfortable pillow that supports the head and keeps the spine in a neutral position. The position of the head should not be tilted forward or backward. A rolled up towel may help for a custom fit. 2) Some persons find relief with heat (hot shower, hot bath or heating pad) and massage, while others prefer cold packs (crushed or cubed ice in a plastic bag, wrapped in a towel) . Try both and use the method that feels best for 20 minutes several times a day. 3) You may use acetaminophen (Tylenol) or ibuprofen (Motrin, Advil) to control pain, unless another medicine was prescribed. [ NOTE : If you have chronic liver or kidney disease or ever had a stomach ulcer or GI bleeding, talk with your doctor before using these medicines.] Follow Up with your physician or this facility if your symptoms do not show signs of improvement after one week. Further testing may be needed. [NOTE: If x-rays were taken, they will be reviewed by a radiologist. You will be notified of any new findings that may affect your care.] Get Prompt Medical Attention if any of the following occur: -- Pain becomes worse and not controlled by prescribed pain medicine -- Weakness in the arm -- Increasing numbness in the arm -- Trouble breathing or swallowing Methylprednisolone Oral tablet What is this medicine? METHYLPREDNISOLONE (meth ill pred NISS oh lone) is a corticosteroid. It is commonly used to treat inflammation of the skin, joints, lungs, and other organs. Common conditions treated include asthma, allergies, and arthritis. It is also used for other conditions, such as blood disorders and diseases of the adrenal glands. How should I use this medicine? Take this medicine by mouth with a drink of water. Follow the directions on the prescription label. Take it with food or milk to avoid stomach upset. If you are taking this medicine once a day, take it in the morning. Do not take more medicine than you are told to take. Do not suddenly stop taking your medicine because you may develop a severe reaction. Your doctor will tell you how much medicine to take. If your doctor wants you to stop the medicine, the dose may be slowly lowered over time to avoid any side effects. Talk to your complex human resources manager regarding the use of this medicine in children. Special care may be needed. What side effects may I notice from receiving this medicine? Side effects that you should report to your doctor or health senior care provider as soon as possible: allergic reactions like skin rash, itching or hives, swelling of the face, lips, or tongue eye pain, decreased or blurred vision, or bulging eyes fever, sore throat, sneezing, cough, or other signs of infection, wounds that will not heal increased thirst mental depression, mood swings, mistaken feelings of self importance or of being mistreated pain in hips, back, ribs, arms, shoulders, or legs swelling of the ankles, feet, hands trouble passing urine or change in the amount of urine Side effects that usually do not require medical attention (report to your doctor or health senior care provider if they continue or are bothersome): confusion, excitement, restlessness headache nausea, vomiting skin problems, acne, thin and shiny skin weight gain What may interact with this medicine? Do not take this medicine with any of the following medications: mifepristone This medicine may also interact with the following medications: tacrolimus vaccines warfarin What if I miss a dose? If you miss a dose, take it as soon as you can. If it is almost time for your next dose, talk to your doctor or health senior care provider. You may need to miss a dose or take an extra dose. Do not take double or extra doses without advice. Where should I keep my medicine? Keep out of the reach of children. Store at room temperature between 20 and 25 degrees C (68 and 77 degrees F). Throw away any unused medicine after the expiration date. What should I tell my health care provider before I take this medicine? They need to know if you have any of these conditions: [place]'s syndrome diabetes glaucoma heart problems or disease high blood pressure infection such as herpes, measles, tuberculosis, or chickenpox kidney disease liver disease mental problems myasthenia gravis osteoporosis seizures stomach ulcer or intestine disease including colitis and diverticulitis thyroid problem an unusual or allergic reaction to lactose, methylprednisolone, other medicines, foods, dyes, or preservatives or trying to get breast-feeding What should I watch for while using this medicine? Visit your doctor or health senior care provider for regular checks on your progress. If you are taking this medicine for a long time, carry an identification card with your name and address, the type and dose of your medicine, and your doctor's name and address. The medicine may increase your risk of getting an infection. Stay away from people who are sick. Tell your doctor or health senior care provider if you are around anyone with measles or chickenpox. If you are going to have surgery, tell your doctor or health senior care provider that you have taken this medicine within the last twelve months. Ask your doctor or health senior care provider about your diet. You may need to lower the amount of salt you eat. The medicine can increase your blood sugar. If you are a diabetic check with your doctor if you need help adjusting the dose of your diabetic medicine. You have been given the following additional information: Neck Pain, No Trauma Radiculopathy, Cervical Methylprednisolone Oral tablet (Electronically signed by Ayana Ortiz A.R.N.P. 06/16/2016 20:13)
--- NOTE | 2016-06-16 21:04 | ED MED RECONCILIATION SUMMARY ---
Patient: LASHANDA URIARTE Medication Reconciliation Report [facility] VisitID: [id number] [address] [place] [address] 25y, M Registration Date/Time: 06/16/2016 Weight: 63.5 kg Height/Length: 70 in. BMI: 20.1 ALLERGIES: No Known Drug Allergy The patient's Home Medications are listed below: THE FOLLOWING MEDICATIONS NEED TO BE RECONCILED: Oxycodone-Acetaminophen Oral The source(s) of the original Home Medication information: Not obtained. The following Medications were given to the patient in the Emergency Department: Toradol [IM] IM 60 mg, administered: 06/16/2016 7:59:00 PM The following Medications were prescribed to the patient: Lodine 300 mg capsules: Take 1 capsule orally every 8 hours as needed. Dispense thirty (30). No refills. Substitution is permissible. -- Ayana Ortiz, KingsleyR.N.P. Medrol Dosepak: take according to package directions. Dispense one (1) dosepak. No refills. Substitution is permissible. -- Ayana Ortiz, Acacia.R.N.P.
== END 2016-06-16 20:00 | disposition home or self-care (01) ==
LOC: ED SRH 19:12
DX: G89.29 Other chronic pain (principal); M54.2 Cervicalgia; M47.812 Spondylosis without myelopathy or radiculopathy, cervical region; Z79.899 Other long term (current) drug therapy; F17.290 Nicotine dependence, other tobacco product, uncomplicated

== ENCOUNTER 2016-06-20 21:27 | Emergency (ER) | payer OTHER ==
--- NOTE | 2016-06-20 22:18 | ED ORDER SUMMARY ---
..... Patient: LAHSANDA URIARTE OrderSheet [facility] VisitID: [id number] [address] [place] [address] 25y, M Registration Date/Time: 06/20/2016 ORDER SHEET Weight: 63.5 kg (stated) Allergies: No Known Drug Allergy GENERAL ORDERS: UA-Culture if indicated Urgent (21:47 06/20/2016 HBivens A.R.N.P.) (Ack 21:48 AMcQuoid ER Tech1) (21:50 AMcQuoid ER Tech1) Urine Drug Screen Urgent (21:47 06/20/2016 HBivens A.R.N.P.) (Ack 21:48 AMcQuoid ER Tech1) (21:50 AMcQuoid ER Tech1) MEDICATION ORDERS: Toradol IM 60 mg (NOW) (22:06 06/20/2016 HBivens A.R.N.P.) (22:12 Artis R.N.) IV FLUIDS: ORDER SHEET NOTES: [Electronically signed by Inessa Ramos R.N. (22:38 06/20/2016)] [Electronically signed by Ayana Ortiz.R.N.PNathalie (19:10 06/21/2016)] [Electronically locked/signed by Inessa Ramos R.N. (22:38 06/20/2016)]
--- NOTE | 2016-06-20 22:18 | ED CLINICAL REPORT ---
Clinical Report - Physicians/Mid Levels [facility] [address] [place] [address] 06/20/2016 21:27 Patient: LASHANDA URIARTE Time Seen: 21:35; upon arrival, initial patient contact, initial documentation, patient care assumed. Arrived- By private vehicle. Historian- patient. RETURN VISIT: recently seen in this ED by me. Seen now for the same problem as before. HISTORY OF PRESENT ILLNESS Chief Complaint: NECK PAIN and CHRONIC NECK PAIN. It is still present. It is described as being severe and in the area of the left side of the cervical spine, cervical spine and right side of the cervical spine. The quality is noted to be "pain" and similar to prior episodes. Modifying factors- worsened by rotation of the head to the right or left or neck flexion. Not relieved by anything. No bladder dysfunction, bowel dysfunction, sensory loss or motor loss. Additional history - pt now telling me that his neck surgery, for tomorrow, was cancelled as of today, per his work saying that are fighting the [employer] claim for neck injury, surgery on hold for 2 weeks, work as 2 weeks to prove that there was no injury or that injury does not require surgery. Patient denies an injury but injury to the head or chest. Similar symptoms previously: Chronically, as bad. Recent medical care: The patient was seen recently at this facility in the emergency department. ( txed here on 06/16 for same thing, pt at that visit said he was supposed to have neck surgery tomorrow on 06/21). REVIEW OF SYSTEMS No fever, difficulty breathing, chest pain or abdominal pain. He has had difficulty with urination (today), with burning. All systems otherwise negative, except as recorded above. PAST HISTORY See nurses notes. PROBLEMS: Substance Abuse. Cervical Radiculopathy. Gastroesophageal Reflux Disease. Gastritis. Peptic Ulcer Disease. GI Bleeding. H-pylori. Dehydration. Neck Injury. Sciatica. Back Injury. Vomiting. Headache. Myofascial Strain. Gingivitis. Nausea. Neck Pain. Dental Pain. Back Pain. --21:38 Inessa Ramos R.N. Gastritis [RuleOut]. --21:38 Inessa Ramos R.N. ADDITIONAL SURGERIES: Endoscopy. --21:38 Inessa Ramos R.N. SOCIAL HISTORY Light tobacco smoker. History of heavy drug use: marijuana. No alcohol use. No recent travel. Is a local resident. FAMILY HISTORY Negative. ADDITIONAL NOTES The nursing notes have been reviewed with agreement regarding the chief complaint, HPI, ROS, PMH and patient medications and allergies. PHYSICAL EXAM Vital Signs: 06/20/2016 21:35 BP: 139/90. HR: 62. RR: 12. O2 saturation: 100%. Temp: 98.6 F. Pain level now: 10/22. Have been reviewed as normal and appear to be correct. Appearance: Alert. No acute distress. HEENT: Normal external inspection. Eyes: Pupils equal, round and reactive to light. Neck: Neck tenderness. Normal inspection. Painful ROM. Pain in the neck upon movement. Decrease in ROM. No muscle spasm in the neck. Vertebral tenderness. Soft tissue tenderness. No lymphadenopathy or meningeal signs. CVS: Normal heart rate and rhythm. Heart sounds normal. Pulses normal. Respiratory: No respiratory distress. Breath sounds normal. Chest nontender. Back: Normal inspection. No tenderness. Painless ROM. Skin: Skin warm and dry. Normal skin color. No rash. Normal skin turgor. Extremities: Extremities exhibit normal ROM. Extremities nontender. Neuro: Oriented X 3. Mood/affect normal. No motor deficit. No sensory deficit. LABS, X-RAYS, AND EKG Laboratory Tests: UA-Culture if indicated: (ARNOLD: 06/20/2016 21:50) ( MsgRcvd 06/20/2016 22:14) Final results Test Result Flag Units (Reference) URINE COLOR YELLOW URINE APPEARANCE CLEAR URINE GLUCOSE NEGATIVE (NEGATIVE) URINE BILIRUBIN NEGATIVE (NEGATIVE) URINE KETONE NEGATIVE (NEGATIVE) URINE SPECIFIC GRAVITY 1.020 (1.010-1.030) URINE PH 6.0 (5.0-8.0) URINE PROTEIN NEGATIVE (NEGATIVE) URINE UROBILINOGEN 0.2 EU/dL (0.2-1.0) URINE NITRITE NEGATIVE (NEGATIVE) URINE BLOOD NEGATIVE (NEGATIVE) URINE LEUK ESTERASE NEGATIVE (NEGATIVE) URINE RBC NONE SEEN rbc/hpf (0-1) URINE WBC NONE SEEN wbc/hpf (0-1) URINE EPITHELIAL CELLS 0-1 EPI/hpf (0-5) URINE BACTERIA NONE SEEN (NONE SEEN) URINE COMMENT CULT NOT INDICATED URINE CULTURES ARE SET-UP BASED ON THE FOLLOWING CRITERIA:POSITIVE NITRITEPOSITIVE LEUKOCYTE ESTERASEGREATER THAN 10 WHITE BLOOD CELLSMODERATE (2+) OR GREATER BACTERIA . PROGRESS AND PROCEDURES Course of Care: offered pt toradol again, and reinforced that no more narcs or controlled substance would be given, pt verbalized understanding and agreed to take toradol pt well known to me and er staff pt has long scarlet for frequent large quantities of oxycodone 10mg, last rx 06/06, see report for full details, #10 er visits. Patient counseled in person regarding the patient's stable condition, test results and diagnosis. 22:17. Differential Diagnosis: I considered sprain, degenerative joint disease and arthritis as a possible cause of joint pain in this patient. This is a partial list of diagnoses considered. Other possible considerations: substance abuse, chronic neck pain, uti. Above considerations are based on history, physical exam, reassessment and laboratory data. Differential diagnosis was discussed with patient. Disposition: Discharged home in good and improved condition (22:18). Condition: good and stable. CLINICAL IMPRESSION Chronic neck pain associated with cervical DJD. No neuro deficit. INSTRUCTIONS Warnings: GENERAL WARNINGS: Return or contact your physician immediately if your condition worsens or changes unexpectedly, if not improving as expected, or if other problems arise. SPECIFICALLY, return if you develop incontinence of urine (loss of bladder control). Follow-up: Follow up with your doctor in about one week as needed. Call for an appointment. Summary of care provided to patient. Understanding of the discharge instructions verbalized by patient. (Electronically signed by Ayana Ortiz A.R.N.P. 06/21/2016 19:10)
--- NOTE | 2016-06-20 22:18 | ED NURSING NOTES ---
Clinical Report - Nurses [facility] [address] [place] [address] 06/20/2016 21:27 Patient: LASHANDA URIARTE TRIAGE Triage time 2136 PM. Acuity: LEVEL 4. Chief Complaint: NECK PAIN. Alert. No acute distress. VIDA COMA SCORE: Vida Coma Scale: 15- eyes open spontaneously (4); best verbal response- oriented x 4 (5); best motor response- obeys commands (6). --21:41 Inessa Ramos R.N. 21:35 06/20/16. BP: 139/90 (regular adult cuff) taken on the left arm, via an automated monitor, while sitting. HR: 62. RR: 12. O2 saturation: 100% on room air. Temp: 98.6 F (oral). Pain level now: 10/22. --21:41 Inessa Ramos R.N. Weight: 63.5 kg stated. Height/Length: 70 inches Per Patient. BMI: 20.1. --21:38 Inessa Ramos R.N. Medications Oxycodone-Acetaminophen Oral. --21:37 Inessa Ramos R.N. Medication/allergy information source: the patient. --21:41 Inessa Ramos R.N. Allergies No Known Drug Allergy. --21:37 Inessa Ramos R.N. History Arrived by private vehicle. Historian: patient. Unaccompanied. ( Pt states supposed to have surgery done tomorrow for "fusion" but employer is denying claim, therefore cx surgery for tomorrow. Here to try to get a toradol shot and back/flank pain). This started today. This is a recurrent problem. He has had numbness, tingling, and trouble walking. History of recent trauma (moderate)- lifting injury. 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 PAST MEDICAL HX: Tetanus status: up-to-date. SOCIAL HX: Smoker- current status unknown. No alcohol use or drug use. No infectious disease exposure. ABUSE ASSESSMENT: No report of abuse. SELF HARM ASSESSMENT: A self harm assessment was performed. The patient answered "no" to the question "Do you have thoughts of harming or killing yourself?" and "Have you recently had thoughts about harming or killing others?". FALL RISK ASSESSMENT: Fall risk assessment completed. No fall risk identified. NUTRITIONAL RISK ASSESSMENT: The nutritional risk assessment revealed no deficiencies. FUNCTIONAL ASSESSMENT: Functional assessment: no impairments noted. LEARNING NEEDS ASSESSMENT: The learning needs assessment revealed no barriers. SKIN INTEGRITY ASSESSMENT: Skin integrity risk assessment completed. No skin integrity risk identified. --21:41 Inessa Ramos R.N. PROBLEMS: Substance Abuse. Cervical Radiculopathy. Gastroesophageal Reflux Disease. Gastritis. Peptic Ulcer Disease. GI Bleeding. H-pylori. Dehydration. Neck Injury. Sciatica. Back Injury. Vomiting. Headache. Myofascial Strain. Gingivitis. Nausea. Neck Pain. Dental Pain. Back Pain. --21:38 Inessa Ramos R.N. Gastritis [RuleOut]. --21:38 Ienssa Ramos R.N. ADDITIONAL SURGERIES: Endoscopy. --21:38 Inessa Ramos R.N. Interventions ID band on patient. --21:41 Inessa Ramos R.N. PHYSICAL ASSESSMENT Ambulatory to room. GENERAL / NEURO / PSYCH: Alert. Oriented X 4. Appears in pain. RESPIRATORY: Respirations not labored. Chest nontender. Breath sounds within normal limits. CVS: Capillary refill less than 2 seconds. GI / : Abdomen soft and nontender. EXTREMITIES: Sensation intact in extremities. BACK: Limited ROM of the neck and back. Vertebral point tenderness over the cervical spine and thoracic spine. Soft tissue tenderness. --21:42 Inessa Ramos R.N. NURSING PROGRESS NOTES The initial plan of care for this patient has been created This plan of care was discussed with the patient. Reassurance given. Two patient identifiers checked. Call light placed in reach. Side rails up. Bed placed in lowest position. Brakes of bed on. Patient ready for evaluation- SENIOR ASSISTANT MANAGER notified. --21:42 Inessa Ramos R.N. 22:12 06/20/2016 Toradol (Ketorolac Tromethamine) IM 60 mg given. Given in the right deltoid. Allergies verified and confirmed 5 rights. --22:12 Inessa Ramos R.N. 22:27 06/20/2016 Toradol IM Response: no adverse reaction. --22:37 Inessa Ramos R.N. DISPOSITION / DISCHARGE Condition at departure: stable. No learning barriers present. Discharge instructions provided and reviewed with the patient. Patient verbalized understanding. Written instructions provided in Chinese. The patient was discharged by the physician financial legal assistant. He was discharged home. He left the Emergency Department ambulatory and via private vehicle. Patient driving. --22:27 Sheriff Saucedo R.N. 22:20 06/20/16. BP: 125/84. HR: 78. RR: 14. O2 saturation: 98% on room air. Temp: 98.3 F (oral). Pain level now: 06/21. --22:38 Inessa Ramos R.N. Departure time: 2226 PM. --22:38 Inessa Ramos R.N. Locked/Released at 06/20/2016 22:38 by Inessa Ramos R.N.
--- NOTE | 2016-06-20 22:18 | ED NURSING NOTES ---
Clinical Report - Nurses [facility] [address] [place] [place] [address] 06/20/2016 21:27 Patient: LASHANDA URIARTE TRIAGE Triage time 2136 PM. Acuity: LEVEL 4. Chief Complaint: NECK PAIN. Alert. No acute distress. VIDA COMA SCORE: Vida Coma Scale: 15- eyes open spontaneously (4); best verbal response- oriented x 4 (5); best motor response- obeys commands (6). --21:41 Inessa Ramos R.N. 21:35 06/20/16. BP: 139/90 (regular adult cuff) taken on the left arm, via an automated monitor, while sitting. HR: 62. RR: 12. O2 saturation: 100% on room air. Temp: 98.6 F (oral). Pain level now: 10/22. --21:41 Inessa Ramos R.N. Weight: 63.5 kg stated. Height/Length: 70 inches Per Patient. BMI: 20.1. --21:38 Inessa Ramos R.N. Medications Oxycodone-Acetaminophen Oral. --21:37 Inessa Ramos R.N. Medication/allergy information source: the patient. --21:41 Inessa Ramos R.N. Allergies No Known Drug Allergy. --21:37 Inessa Ramos R.N. History Arrived by private vehicle. Historian: patient. Unaccompanied. ( Pt states supposed to have surgery done tomorrow for "fusion" but employer is denying claim, therefore cx surgery for tomorrow. Here to try to get a toradol shot and back/flank pain). This started today. This is a recurrent problem. He has had numbness, tingling, and trouble walking. History of recent trauma (moderate)- lifting injury. 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 PAST MEDICAL HX: Tetanus status: up-to-date. SOCIAL HX: Smoker- current status unknown. No alcohol use or drug use. No infectious disease exposure. ABUSE ASSESSMENT: No report of abuse. SELF HARM ASSESSMENT: A self harm assessment was performed. The patient answered "no" to the question "Do you have thoughts of harming or killing yourself?" and "Have you recently had thoughts about harming or killing others?". FALL RISK ASSESSMENT: Fall risk assessment completed. No fall risk identified. NUTRITIONAL RISK ASSESSMENT: The nutritional risk assessment revealed no deficiencies. FUNCTIONAL ASSESSMENT: Functional assessment: no impairments noted. LEARNING NEEDS ASSESSMENT: The learning needs assessment revealed no barriers. SKIN INTEGRITY ASSESSMENT: Skin integrity risk assessment completed. No skin integrity risk identified. --21:41 Inessa Ramos R.N. PROBLEMS: Substance Abuse. Cervical Radiculopathy. Gastroesophageal Reflux Disease. Gastritis. Peptic Ulcer Disease. GI Bleeding. H-pylori. Dehydration. Neck Injury. Sciatica. Back Injury. Vomiting. Headache. Myofascial Strain. Gingivitis. Nausea. Neck Pain. Dental Pain. Back Pain. --21:38 Inessa Ramos R.N. Gastritis [RuleOut]. --21:38 Inessa Ramos R.N. ADDITIONAL SURGERIES: Endoscopy. --21:38 Inessa Ramos R.N. Interventions ID band on patient. --21:41 Inessa Ramos R.N. PHYSICAL ASSESSMENT Ambulatory to room. GENERAL / NEURO / PSYCH: Alert. Oriented X 4. Appears in pain. RESPIRATORY: Respirations not labored. Chest nontender. Breath sounds within normal limits. CVS: Capillary refill less than 2 seconds. GI / : Abdomen soft and nontender. EXTREMITIES: Sensation intact in extremities. BACK: Limited ROM of the neck and back. Vertebral point tenderness over the cervical spine and thoracic spine. Soft tissue tenderness. --21:42 Inessa Ramos R.N. NURSING PROGRESS NOTES The initial plan of care for this patient has been created This plan of care was discussed with the patient. Reassurance given. Two patient identifiers checked. Call light placed in reach. Side rails up. Bed placed in lowest position. Brakes of bed on. Patient ready for evaluation- CARBONIZER TESTER notified. --21:42 Inessa Ramos R.N. 22:12 06/20/2016 Toradol (Ketorolac Tromethamine) IM 60 mg given. Given in the right deltoid. Allergies verified and confirmed 5 rights. --22:12 Inessa Ramos R.N. 22:27 06/20/2016 Toradol IM Response: no adverse reaction. --22:37 Inessa Ramos R.N. DISPOSITION / DISCHARGE Condition at departure: stable. No learning barriers present. Discharge instructions provided and reviewed with the patient. Patient verbalized understanding. Written instructions provided in Tajik. The patient was discharged by the physician buyer assistant. He was discharged home. He left the Emergency Department ambulatory and via private vehicle. Patient driving. --22:27 Sheriff Saucedo R.N. 22:20 06/20/16. BP: 125/84. HR: 78. RR: 14. O2 saturation: 98% on room air. Temp: 98.3 F (oral). Pain level now: 06/21. --22:38 Inessa Ramos R.N. Departure time: 2226 PM. --22:38 Inessa Ramos R.N. Locked/Released at 06/20/2016 22:38 by Inesas Ramos R.N.
--- NOTE | 2016-06-20 22:18 | ED ORDER SUMMARY ---
..... Patient: LASHANDA URIARTE OrderSheet [facility] VisitID: [id number] [address] [place] [address] 25y, M Registration Date/Time: 06/20/2016 ORDER SHEET Weight: 63.5 kg (stated) Allergies: No Known Drug Allergy GENERAL ORDERS: UA-Culture if indicated Urgent (21:47 06/20/2016 HBivens A.R.N.P.) (Ack 21:48 AMcQuoid ER Tech1) (21:50 AMcQuoid ER Tech1) Urine Drug Screen Urgent (21:47 06/20/2016 HBivens A.R.N.P.) (Ack 21:48 AMcQuoid ER Tech1) (21:50 AMcQuoid ER Tech1) MEDICATION ORDERS: Toradol IM 60 mg (NOW) (22:06 06/20/2016 HBivens A.R.N.P.) (22:12 Artis R.N.) IV FLUIDS: ORDER SHEET NOTES: [Electronically signed by Inessa Ramos R.N. (22:38 06/20/2016)] [Electronically signed by Ayana Ortiz.R.N.PNathalie (19:10 06/21/2016)] [Electronically locked/signed by Inessa Ramos R.N. (22:38 06/20/2016)]
--- NOTE | 2016-06-21 19:11 | ED MAR SUMMARY ---
..... Medication Administration Record [facility] [address] [place] [address] Patient: LASHANDA URIARTE Visit ID: [id number] 25y, M Weight: 63.5 kg Height/Length: 70 in BMI: 20.1 ALLERGIES: No Known Drug Allergy Given 22:12 06/20/2016 Inessa Ramos R.N. Medication Administered: TORADOL [IM] (KETOROLAC TROMETHAMINE), Dose: 60 mg IM. Medication Ordered: Toradol IM 60 mg (NOW).
--- NOTE | 2016-06-21 19:11 | ED MED RECONCILIATION SUMMARY ---
Patient: LASHANDA URIARTE Medication Reconciliation Report VisitID: [id number] [address] [place] [address] 25y, M Registration Date/Time: 06/20/2016 Weight: 63.5 kg Height/Length: 70 in. BMI: 20.1 ALLERGIES: No Known Drug Allergy The patient's Home Medications are listed below: THE FOLLOWING MEDICATIONS NEED TO BE RECONCILED: Oxycodone-Acetaminophen Oral The source(s) of the original Home Medication information: patient The following Medications were given to the patient in the Emergency Department: Toradol [IM] IM 60 mg, administered: 06/20/2016 10:12:00 PM The following Medications were prescribed to the patient: None.
--- NOTE | 2016-06-21 19:11 | ED DISCHARGE INSTRUCTIONS ---
Patient: LASHANDA URIARTE General Instructions [facility] VisitID: [id number] [place] [address] 25y, M Registration Date/Time: 06/20/2016 Chronic neck pain associated with cervical DJD. No neuro deficit. INSTRUCTIONS Warnings: GENERAL WARNINGS: Return or contact your physician immediately if your condition worsens or changes unexpectedly, if not improving as expected, or if other problems arise. SPECIFICALLY, return if you develop incontinence of urine (loss of bladder control). Follow-up: Follow up with your doctor in about one week as needed. Call for an appointment. Summary of care provided to patient. Understanding of the discharge instructions verbalized by patient. ADDITIONAL INFORMATION Neck Pain [No Trauma] There are several possible causes of neck pain without injury: You can get a minor ligament sprain or muscle strain from a sudden minor neck movement. Sleeping with your neck in an awkward position can also cause this. Some persons respond to emotional stress by tensing the muscles of their neck, shoulders and upper back. Chronic spasm in these muscles can cause neck pain and sometimes headaches. Gradualwear and tearof the joints in the spine can cause degenerative arthritis.This can be a source of occasional or chronic neck pain. With aging or repeated small injuries to the neck, the spinal disks (the cushions between each spinal bone) may bulge and put pressure on a nearby spinal nerve. This causes tingling, pain or numbness spreading from the neck to the shoulder, arm or hand on one side. Acute neck pain usually gets better in one to two weeks. Neck pain related to disk disease, arthritis in the spinal joints or spinal stenosis (narrowing of the spinal canal) can become chronic and last for months or years. Unless you had a forceful physical injury (for example, a car accident or fall), X-rays are usually not ordered for the initial evaluation of neck pain. If pain continues and does not respond to medical treatment, x-rays and other tests may be performed at a later time. Home Care: Rest and relax the muscles. Use a comfortable pillow that supports the head and keeps the spine in a neutral position. The position of the head should not be tilted forward or backward. A rolled up towel may help for a custom fit. Some persons find relief with heat (hot shower, hot bath or heating pad) and massage, while others prefer cold packs (crushed or cubed ice in a plastic bag, wrapped in a towel) . Try both and use the method that feels best for 20 minutes several times a day. You may use acetaminophen (Tylenol) or ibuprofen (Motrin, Advil) to control pain, unless another medicine was prescribed. [ NOTE : If you have chronic liver or kidney disease or ever had a stomach ulcer or GI bleeding, talk with your doctor before using these medicines.] Follow Up with your physician or this facility if your symptoms do not show signs of improvement after one week. Physical therapy or further tests may be needed. [NOTE: A radiologist will review any X-rays or CT scans that were taken. We will notify you of any new findings that may affect your care.] Get Prompt Medical Attention if any of the following occur: Pain becomes worse or spreads into one or both arms Weakness or numbness in one or both arms Increasing headache Neck swelling, difficulty or painful swallowing Fever of 100.4F (38C) or higher, or as directed by your healthcare provider Pinched Nerve, Neck [Cervical Radiculopathy] A pinched nerve in the neck (also called "Cervical Radiculopathy") is caused by irritation or pressure on the nerve that goes from the spinal cord to the arm. This may be caused by a bulging spinal disk (a "spinal disk" is the cushion between each spinal bone) or narrowing of the spinal joint due to arthritis. This can cause numbness, tingling, deep aching or electrical shooting pain from the side of the neck all the way down to the fingers on one side. A pinched nerve may begin after a sudden turning/bending force (such as in a car accident) or after a simple awkward movement. In either case, muscle spasm is commonly present and contributes to the pain. Home Care: 1) Rest and relax the muscles. Use a comfortable pillow that supports the head and keeps the spine in a neutral position. The position of the head should not be tilted forward or backward. A rolled up towel may help for a custom fit. 2) Some persons find relief with heat (hot shower, hot bath or heating pad) and massage, while others prefer cold packs (crushed or cubed ice in a plastic bag, wrapped in a towel) . Try both and use the method that feels best for 20 minutes several times a day. 3) You may use acetaminophen (Tylenol) or ibuprofen (Motrin, Advil) to control pain, unless another medicine was prescribed. [ NOTE : If you have chronic liver or kidney disease or ever had a stomach ulcer or GI bleeding, talk with your doctor before using these medicines.] Follow Up with your physician or this facility if your symptoms do not show signs of improvement after one week. Further testing may be needed. [NOTE: If x-rays were taken, they will be reviewed by a radiologist. You will be notified of any new findings that may affect your care.] Get Prompt Medical Attention if any of the following occur: -- Pain becomes worse and not controlled by prescribed pain medicine -- Weakness in the arm -- Increasing numbness in the arm -- Trouble breathing or swallowing You have been given the following additional information: Neck Pain, No Trauma Radiculopathy, Cervical (Electronically signed by Ayana Ortiz A.R.N.P. 06/21/2016 19:10)
--- NOTE | 2016-06-21 19:11 | ED MAR SUMMARY ---
..... Medication Administration Record [facility] [address] [place] [address] Patient: LASHANDA URIARTE Visit ID: [id number] 25y, M Weight: 63.5 kg Height/Length: 70 in BMI: 20.1 ALLERGIES: No Known Drug Allergy Given 22:12 06/20/2016 Inessa Ramos R.N. Medication Administered: TORADOL [IM] (KETOROLAC TROMETHAMINE), Dose: 60 mg IM. Medication Ordered: Toradol IM 60 mg (NOW).
--- NOTE | 2016-06-21 19:11 | ED MED RECONCILIATION SUMMARY ---
Patient: LASHANDA URIARTE Medication Reconciliation Report [facility] VisitID: [id number] [address] [place] [address] 25y, M Registration Date/Time: 06/20/2016 Weight: 63.5 kg Height/Length: 70 in. BMI: 20.1 ALLERGIES: No Known Drug Allergy The patient's Home Medications are listed below: THE FOLLOWING MEDICATIONS NEED TO BE RECONCILED: Oxycodone-Acetaminophen Oral The source(s) of the original Home Medication information: patient The following Medications were given to the patient in the Emergency Department: Toradol [IM] IM 60 mg, administered: 06/20/2016 10:12:00 PM The following Medications were prescribed to the patient: None.
== END 2016-06-20 22:26 | disposition home or self-care (01) ==
LOC: ED SRH 21:27
DX: M50.30 Other cervical disc degeneration, unspecified cervical region (principal); K21.9 Gastro-esophageal reflux disease without esophagitis
CPT/HCPCS: 90004; 92760; 92761; 92762; 92763; 92764; 92765; 92766; 92767

== ENCOUNTER 2016-07-17 13:27 | Emergency (ER) | payer OTHER ==
--- NOTE | 2016-07-17 14:27 | ED NURSING NOTES ---
Clinical Report - Nurses [facility] [address] [place] [address] 07/17/2016 13:29 [id number] Triage time 13:37 Jul 17 2016. Chief Complaint: NECK PAIN. --13:44 Tammi Nix R.N. Acuity: LEVEL 4. --13:45 Tammi Nix R.N. 13:45 07/17/16. BP: 118/69. HR: 72. RR: 16. O2 saturation: 98%. Pain level now: 08/21. --13:45 Tammi Nix R.N. Weight: 63.5 kg stated. Height/Length: 71 inches Per Patient. BMI: 19.5. --13:45 Tammi Nix R.N. Medications OxyCODONE HCl Oral 10 mg, 5 x a day. --13:40 Tammi Nix R.N. Allergies None. --13:41 Tammi Nix R.N. History Arrived by private vehicle. Historian: patient. ( pt states that he is having left side neck pain that radiates into his jaw and ear. pt states that his current pain medications are not helping.). 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 --13:44 Tammi Nix R.N. PAST MEDICAL HX: Immunizations: status is unknown. SOCIAL HX: Never smoker. History of occasional drug use: marijuana. No alcohol use. No infectious disease exposure. SELF HARM ASSESSMENT: A self harm assessment was performed. The patient answered "no" to the question "Do you have thoughts of harming or killing yourself?". FALL RISK ASSESSMENT: Fall risk assessment completed. No fall risk identified. NUTRITIONAL RISK ASSESSMENT: The nutritional risk assessment revealed no deficiencies. FUNCTIONAL ASSESSMENT: Functional assessment: no impairments noted. LEARNING NEEDS ASSESSMENT: The learning needs assessment revealed no barriers. ABUSE ASSESSMENT: Abuse assessment: The patient was asked "Do you feel safe in your home?". SKIN INTEGRITY ASSESSMENT: Skin integrity risk assessment completed. No skin integrity risk identified. --13:45 Tammi Nix R.N. PROBLEMS: Substance Abuse. Cervical Radiculopathy. Gastroesophageal Reflux Disease. Gastritis. Peptic Ulcer Disease. GI Bleeding. H-pylori. Dehydration. Neck Injury. Sciatica. Back Injury. Vomiting. Headache. Croup. Tetanus Status. Myofascial Strain. Immunizations. Gingivitis. Nausea. Neck Pain. Dental Pain. Back Pain. --13:42 Tammi Nix R.N. ADDITIONAL SURGERIES: Endoscopy. --13:42 Tammi Nix R.N. Interventions ID band on patient. To room. --13:45 Tammi Nix R.N. PHYSICAL ASSESSMENT Ambulatory to room. GENERAL / NEURO / PSYCH: Alert. Oriented X 4. Appears in pain. HEENT: Mucous membranes are pink. RESPIRATORY: Respirations not labored. CVS: Capillary refill less than 2 seconds. Pulses within normal limits. GI / : Abdomen soft and nontender. SKIN: Skin is warm and dry. --13:43 Tammi Nix R.N. NURSING PROGRESS NOTES Patient gowned. Head of bed elevated. Patient identifiers checked. Call light placed in reach. Bed placed in lowest position. Brakes of bed on. --13:45 Tammi Nix R.N. DISPOSITION / DISCHARGE 14:30. Departure time: 1430. Condition at departure: unchanged and stable. No learning barriers present. Discharge instructions provided and reviewed with the patient. Patient verbalized understanding. Written instructions provided in [place]an. The patient was discharged by the nurse practitioner. He was discharged home. He left the Emergency Department ambulatory and via private vehicle. Patient driving. --14:32 Erinn Mittal R.N. Locked/Released at 07/17/2016 16:58 by Tammi Nix R.N.
--- NOTE | 2016-07-17 14:27 | ED CLINICAL REPORT ---
Clinical Report - Physicians/Mid Levels [facility] [address] [place] [address] 07/17/2016 13:29 Patient: LASHANDA URIARTE Time Seen: 13:35; upon arrival, initial patient contact, initial documentation, patient care assumed. Arrived- By private vehicle. Historian- patient. HISTORY OF PRESENT ILLNESS Chief Complaint: DENTAL PAIN. This started today and is still present. Pain described as severe. No sore throat, mouth sores, nasal discharge or congestion or toothache. No swollen jaw or face or facial pain. He has had ear pain. He has had severe left jaw pain. (states the L side of his jaw his hurting, and the pain is radiating to his ear, also here for his chronic neck pain, stating his pain meds are not working, and his surgery was postponed). Similar symptoms previously: Several times, chronically, as bad. ( neck issues). Recent medical care: The patient was seen recently at this facility in the emergency department. ( for neck pain). REVIEW OF SYSTEMS No difficulty breathing or chest pain. All systems otherwise negative, except as recorded above. PAST HISTORY See nurses notes. PROBLEMS: Substance Abuse. Cervical Radiculopathy. Gastroesophageal Reflux Disease. Gastritis. Peptic Ulcer Disease. GI Bleeding. H-pylori. Dehydration. Neck Injury. Sciatica. Back Injury. Vomiting. Headache. Croup. Tetanus Status. Myofascial Strain. Immunizations. Gingivitis. Nausea. Neck Pain. Dental Pain. Back Pain. --13:42 Tammi Nix RNathalieN. ADDITIONAL SURGERIES: Endoscopy. --13:42 Tammi Nix R.N. SOCIAL HISTORY Never smoker. Occasional alcohol use. History of occasional drug use: marijuana. No recent travel. Is a local resident. FAMILY HISTORY Negative. ADDITIONAL NOTES The nursing notes have been reviewed with agreement regarding the chief complaint, HPI, ROS, PMH and patient medications and allergies. PHYSICAL EXAM Vital Signs: 07/17/2016 13:45 BP: 118/69. HR: 72. RR: 16. O2 saturation: 98%. Pain level now: 7/10. Have been reviewed as normal and appear to be correct. Appearance: Alert. No acute distress. Head: Normal external inspection. Eyes: Pupils equal, round and reactive to light. Conjunctivae and eyelids normal. ENT: Dental decay (lower left second molar) (small chip of tooth, no obvious signs of decay or infection). Ears normal. Nose normal. Pharynx normal. Lips normal. Gums normal. No trismus present. Uvula midline. Neck: Normal inspection. Trachea midline. No adenopathy. Thyroid normal. Neck supple. CVS: Normal heart rate and rhythm. Heart sounds normal. Pulses normal. Respiratory: No respiratory distress. Breath sounds normal. Chest nontender. Skin: Normal skin color. No rash. Normal skin turgor. Extremities: Extremities exhibit normal ROM. Extremities nontender. Neuro: Oriented X 3. No motor deficit. No sensory deficit. PROGRESS AND PROCEDURES Course of Care: pt declined toradol shot offer pt is well known to me and staff pt has scarlet for frequent large doses of narcs and #11 er visits, last rx 06/21 oxycodone 10mg #224. Patient counseled in person regarding the patient's stable condition and diagnosis. Differential Diagnosis: Other possible considerations: substance abuse, chronic neck pain, dental pain, abscess, caries. Above considerations are based on history, physical exam and reassessment. Differential diagnosis was discussed with patient. Disposition: Discharged home in good and unchanged condition (14:27). Condition: good and stable. CLINICAL IMPRESSION Chronic neck pain associated with cervical DJD. No radiculopathy or neuro deficit. Mild dental pain. INSTRUCTIONS Warnings: GENERAL WARNINGS: Return or contact your physician immediately if your condition worsens or changes unexpectedly, if not improving as expected, or if other problems arise. Specifically return if problem worsens. Follow-up: Follow up with your doctor in about three days as needed. Call for an appointment. Summary of care provided to patient. Understanding of the discharge instructions verbalized by patient. (Electronically signed by Ayana Ortiz A.R.N.P. 07/17/2016 18:10)
--- NOTE | 2016-07-17 14:27 | ED NURSING NOTES ---
Clinical Report - Nurses [facility] [address] [place] [place] [address] 07/17/2016 13:29 [id number] Triage time 13:37 Jul 17 2016. Chief Complaint: NECK PAIN. --13:44 Tammi Nix R.N. Acuity: LEVEL 4. --13:45 Tammi Nix R.N. 13:45 07/17/16. BP: 118/69. HR: 72. RR: 16. O2 saturation: 98%. Pain level now: 08/21. --13:45 Tammi Nix R.N. Weight: 63.5 kg stated. Height/Length: 71 inches Per Patient. BMI: 19.5. --13:45 Tammi Nix R.N. Medications OxyCODONE HCl Oral 10 mg, 5 x a day. --13:40 Tammi Nix R.N. Allergies None. --13:41 Tammi Nix R.N. History Arrived by private vehicle. Historian: patient. ( pt states that he is having left side neck pain that radiates into his jaw and ear. pt states that his current pain medications are not helping.). 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 --13:44 Tammi Nix R.N. PAST MEDICAL HX: Immunizations: status is unknown. SOCIAL HX: Never smoker. History of occasional drug use: marijuana. No alcohol use. No infectious disease exposure. SELF HARM ASSESSMENT: A self harm assessment was performed. The patient answered "no" to the question "Do you have thoughts of harming or killing yourself?". FALL RISK ASSESSMENT: Fall risk assessment completed. No fall risk identified. NUTRITIONAL RISK ASSESSMENT: The nutritional risk assessment revealed no deficiencies. FUNCTIONAL ASSESSMENT: Functional assessment: no impairments noted. LEARNING NEEDS ASSESSMENT: The learning needs assessment revealed no barriers. ABUSE ASSESSMENT: Abuse assessment: The patient was asked "Do you feel safe in your home?". SKIN INTEGRITY ASSESSMENT: Skin integrity risk assessment completed. No skin integrity risk identified. --13:45 Tammi Nix R.N. PROBLEMS: Substance Abuse. Cervical Radiculopathy. Gastroesophageal Reflux Disease. Gastritis. Peptic Ulcer Disease. GI Bleeding. H-pylori. Dehydration. Neck Injury. Sciatica. Back Injury. Vomiting. Headache. Croup. Tetanus Status. Myofascial Strain. Immunizations. Gingivitis. Nausea. Neck Pain. Dental Pain. Back Pain. --13:42 Tammi Nix R.N. ADDITIONAL SURGERIES: Endoscopy. --13:42 Tammi Nix R.N. Interventions ID band on patient. To room. --13:45 Tammi Nix R.N. PHYSICAL ASSESSMENT Ambulatory to room. GENERAL / NEURO / PSYCH: Alert. Oriented X 4. Appears in pain. HEENT: Mucous membranes are pink. RESPIRATORY: Respirations not labored. CVS: Capillary refill less than 2 seconds. Pulses within normal limits. GI / : Abdomen soft and nontender. SKIN: Skin is warm and dry. --13:43 Tammi Nix R.N. NURSING PROGRESS NOTES Patient gowned. Head of bed elevated. Patient identifiers checked. Call light placed in reach. Bed placed in lowest position. Brakes of bed on. --13:45 Tammi Nix R.N. DISPOSITION / DISCHARGE 14:30. Departure time: 1430. Condition at departure: unchanged and stable. No learning barriers present. Discharge instructions provided and reviewed with the patient. Patient verbalized understanding. Written instructions provided in [place]. The patient was discharged by the nurse practitioner. He was discharged home. He left the Emergency Department ambulatory and via private vehicle. Patient driving. --14:32 Erinn Mittal R.N. Locked/Released at 07/17/2016 16:58 by Tammi Nix R.N.
--- NOTE | 2016-07-17 18:10 | ED MED RECONCILIATION SUMMARY ---
Patient: LASHANDA URIARTE Medication Reconciliation Report [facility] VisitID: [id number] [address] [place] [address] 25y, M Registration Date/Time: 07/17/2016 Weight: 63.5 kg Height/Length: 71 in. BMI: 19.5 ALLERGIES: None The patient's Home Medications are listed below: THE FOLLOWING MEDICATIONS NEED TO BE RECONCILED: OxyCODONE HCl Oral 10 mg, 5 x a day The source(s) of the original Home Medication information: Not obtained. The following Medications were given to the patient in the Emergency Department: None. The following Medications were prescribed to the patient: None.
--- NOTE | 2016-07-17 18:10 | ED MAR SUMMARY ---
..... Medication Administration Record [facility] [address] [place], [place] [id number] Patient: LASHANDA URIARTE Visit ID: [id number] 25y, M Weight: 63.5 kg Height/Length: 71 in BMI: 19.5 ALLERGIES: None
--- NOTE | 2016-07-17 18:10 | ED DISCHARGE INSTRUCTIONS ---
Patient: LASHANDA URIARTE General Instructions [facility] VisitID: [id number] [place] [address] 25y, M Registration Date/Time: 07/17/2016 Chronic neck pain associated with cervical DJD. No radiculopathy or neuro deficit. Mild dental pain. INSTRUCTIONS Warnings: GENERAL WARNINGS: Return or contact your physician immediately if your condition worsens or changes unexpectedly, if not improving as expected, or if other problems arise. Specifically return if problem worsens. Follow-up: Follow up with your doctor in about three days as needed. Call for an appointment. Summary of care provided to patient. Understanding of the discharge instructions verbalized by patient. ADDITIONAL INFORMATION Dental Pain A crack or cavity in the tooth, which exposes the sensitive inner area of the tooth can cause tooth pain. An infection in the gum or the root of the tooth can cause pain and swelling. The pain is often made worse by drinking hot or cold fluids, or biting on hard foods. Pain may spread from the tooth to the ear or jaw on the same side. Home Care: Avoid hot and cold foods and liquids since your tooth may be sensitive to temperature changes. If your tooth is chipped or cracked, or if there is a large open cavity, apply OIL OF CLOVES (available [id number]-yjdirjv in drug stores) directly to the tooth to reduce pain. Some pharmacies carry an dzuw-qmv-ekqqcee "toothache kit." This contains a paste, which can be applied over the exposed tooth to decrease sensitivity. A cold pack on your jaw over the sore area may help reduce pain. You may use acetaminophen (Tylenol) or ibuprofen (Motrin, Advil) to control pain, unless another medicine was prescribed. [ NOTE: If you have chronic liver or kidney disease or ever had a stomach ulcer or GI bleeding, talk with your doctor before using these medicines.] If you have signs of an infection, an antibiotic will be given. Take it as directed. Follow-Up as directed with a dentist. Your pain may go away with the treatment given. However, only a dentist can fully evaluate and treat the cause and prevent the pain from coming back again. TOOTHACHE IS A SIGN OF DISEASE IN YOUR TOOTH AND SHOULD BE EXAMINED AND TREATED BY A DENTIST. Get Prompt Medical Attention if any of the following occur: Your face becomes swollen or red Pain worsens or spreads to the neck Fever over 100.4 F (38.0 C) Unusual drowsiness; headache or stiff neck; weakness or fainting Pus drains from the tooth Difficulty swallowing or breathing Neck Pain [No Trauma] There are several possible causes of neck pain without injury: You can get a minor ligament sprain or muscle strain from a sudden minor neck movement. Sleeping with your neck in an awkward position can also cause this. Some persons respond to emotional stress by tensing the muscles of their neck, shoulders and upper back. Chronic spasm in these muscles can cause neck pain and sometimes headaches. Gradualwear and tearof the joints in the spine can cause degenerative arthritis.This can be a source of occasional or chronic neck pain. With aging or repeated small injuries to the neck, the spinal disks (the cushions between each spinal bone) may bulge and put pressure on a nearby spinal nerve. This causes tingling, pain or numbness spreading from the neck to the shoulder, arm or hand on one side. Acute neck pain usually gets better in one to two weeks. Neck pain related to disk disease, arthritis in the spinal joints or spinal stenosis (narrowing of the spinal canal) can become chronic and last for months or years. Unless you had a forceful physical injury (for example, a car accident or fall), X-rays are usually not ordered for the initial evaluation of neck pain. If pain continues and does not respond to medical treatment, x-rays and other tests may be performed at a later time. Home Care: Rest and relax the muscles. Use a comfortable pillow that supports the head and keeps the spine in a neutral position. The position of the head should not be tilted forward or backward. A rolled up towel may help for a custom fit. Some persons find relief with heat (hot shower, hot bath or heating pad) and massage, while others prefer cold packs (crushed or cubed ice in a plastic bag, wrapped in a towel) . Try both and use the method that feels best for 20 minutes several times a day. You may use acetaminophen (Tylenol) or ibuprofen (Motrin, Advil) to control pain, unless another medicine was prescribed. [ NOTE : If you have chronic liver or kidney disease or ever had a stomach ulcer or GI bleeding, talk with your doctor before using these medicines.] Follow Up with your physician or this facility if your symptoms do not show signs of improvement after one week. Physical therapy or further tests may be needed. [NOTE: A radiologist will review any X-rays or CT scans that were taken. We will notify you of any new findings that may affect your care.] Get Prompt Medical Attention if any of the following occur: Pain becomes worse or spreads into one or both arms Weakness or numbness in one or both arms Increasing headache Neck swelling, difficulty or painful swallowing Fever of 100.4F (38C) or higher, or as directed by your healthcare provider You have been given the following additional information: Dental Pain Neck Pain, No Trauma (Electronically signed by Ayana Ortiz A.[email or web address] 07/17/2016 18:10)
--- NOTE | 2016-07-17 18:10 | ED MED RECONCILIATION SUMMARY ---
Patient: LASHANDA URIARTE Medication Reconciliation Report [facility] VisitID: [id number] [address] [place] [address] 25y, M Registration Date/Time: 07/17/2016 Weight: 63.5 kg Height/Length: 71 in. BMI: 19.5 ALLERGIES: None The patient's Home Medications are listed below: THE FOLLOWING MEDICATIONS NEED TO BE RECONCILED: OxyCODONE HCl Oral 10 mg, 5 x a day The source(s) of the original Home Medication information: Not obtained. The following Medications were given to the patient in the Emergency Department: None. The following Medications were prescribed to the patient: None.
--- NOTE | 2016-07-17 18:10 | ED MAR SUMMARY ---
..... Medication Administration Record [facility] [address] [place], [place] [id number] Patient: LASHANDA URIARTE Visit ID: [id number] 25y, M Weight: 63.5 kg Height/Length: 71 in BMI: 19.5 ALLERGIES: None
== END 2016-07-17 14:30 | disposition home or self-care (01) ==
LOC: ED SRH 13:27
DX: M54.2 Cervicalgia (principal); G89.29 Other chronic pain; M50.30 Other cervical disc degeneration, unspecified cervical region; K08.89 Other specified disorders of teeth and supporting structures